=== PATIENT | female | born 1950 | race Caucasian/White ===

== ENCOUNTER 2017-01-21 17:40 | Emergency (ER) | payer OTHER ==
[~2017-01-21] VITALS: Ht 151.1 cm; Wt 49.7 kg
[2017-01-21 17:48] VITALS: TEMP 36.7; Ht 151.1 cm; Wt 49.7 kg
[2017-01-21] MEDS ORDERED: LABETALOL HCL IV 5 MG/ML 20ML IV STA (20:50)
[2017-01-21 21:03] LABS: BASO % 0.5 %; BASO ABS # 0.04 K/uL (0-0.2); COMPLETE YES; EOS % 1.4 %; HEMATOCRIT 44.9 % (37-47); IG% 0.1 %; LYMPH % 34.6 %; LYMPH ABS # 2.76 K/uL (1.2-3.4); MEAN CELL VOLUME 86.2 fL (80-100); MEAN CORPUSCULAR HEMOGLOBIN 29.6 pg (25-34); MEAN CORPUSCULAR HGB CONC 34.3 g/dl (32-36); MEAN PLATELET VOLUME 10.3 fL (7.4-10.4); MONO % 5.8 %; NEUT % 57.6 %; PLATELET COUNT 316 K/uL (130-400); RED BLOOD COUNT 5.21 M/uL (4.2-5.4); WHITE BLOOD COUNT 7.98 K/uL (4.8-10.8)
[2017-01-21 21:21] LABS: BUN/CREATININE RATIO 13.4 (10-20); CREATININE 0.73 mg/dl (0.60-1.20); MAGNESIUM 2.4 mg/dl (1.8-2.4)
--- NOTE | 2017-01-21 21:22 | EMERGENCY ROOM VISIT NOTE ---
History Report prepared by Altaf: Betty Villareal Under the Supervision of: Dr. Lizabeth Hillman M.D. First contact with patient: 20:48 Chief Complaint: HYPERTENSION Stated Complaint: HIGH BP 170/110 History of Present Illness The patient is a 66 year old female who presents to the Emergency Room with complaints of persistent hypertension that began prior to arrival. The patient states that she follows with doctors at [facility]. She states that she was just evaluated there earlier this week and was noted to have a blood pressure of 170/90 mmHg. The patient states that she was discharged with a Penicillin antibiotic and Nasonex. She states that today she developed a headache. The patient notes that she found her blood pressure was elevated after she went to [facility]. She additionally associates dizziness and neck pain with her symptoms. The patient denies any chest pain or shortness of breath. She states that she feels congested and feels feverish. Source of History: patient Onset: prior to arrival Position: other (global) Quality: other (hypertension) Timing: other (persistent) Associated Symptoms: + fevers, + headache, + neck pain, No chest pain, No SOB Note: Associated Symptoms: dizziness, congestion Review of Systems See HPI for pertinent positives & negatives. A total of 10 systems reviewed and were otherwise negative. Past Medical & Surgical seasonal allergies Family History No pertinent family history stated. Social History Smoking Status: Never Smoker Marital Status: Housing Status: lives with significant other Occupation Status: employed Current/Historical Medications Scheduled Amoxicillin (Amoxil), 1 TAB PO TID Lisinopril (Prinivil), 5 MG PO DAILY Mometasone Furoate (Nasal) (Mometasone Furoate), 2 SPRAYS STEPHANIE DAILY Montelukast Sodium (Singulair), 10 MG PO DAILY Naproxen (Aleve), 220 MG PO DAILY Saline ([place] Nasal [place]), 1 SPRAY STEPHANIE DAILY Allergies Uncoded Allergies: SULFA (Allergy, Unknown, 09/09/03) DECONGESTANTS (Adverse Reaction, Unknown, HEART PALPITATIONS, 01/21/17) Physical Exam Vital Signs Date Time Temp Pulse Resp B/P (MAP) Pulse Ox O2 Delivery O2 Flow Rate FiO2 01/22/17 00:03 76 18 138/87 99 01/21/17 22:40 70 18 98 01/21/17 22:31 139/75 01/21/17 22:16 124/75 01/21/17 22:10 77 22 97 01/21/17 22:01 139/79 01/21/17 21:46 141/79 01/21/17 21:40 77 17 97 01/21/17 21:31 141/71 01/21/17 21:26 167/102 01/21/17 21:19 86 01/21/17 21:10 94 16 100 01/21/17 21:07 166/97 01/21/17 20:19 189/115 01/21/17 19:30 197/100 01/21/17 19:30 198/95 01/21/17 17:48 36.7 83 17 187/106 100 Room Air Physical Exam Vital signs reviewed, noted to be hypertensive. General: Well-appearing female, in no significant distress. HEENT: No scleral icterus, PERRLA, neck supple. Atraumatic. Cardiovascular: Regular rate and rhythm, no extra sounds. Pulmonary: Clear to auscultation bilaterally, normal work of breathing. Abdomen: Soft, nontender, nondistended, positive bowel sounds. Musculoskeletal: Atraumatic, no peripheral edema. Neurologic: Patient awake alert and oriented x 3, full strength in all 4 extremities. Cranial nerves 2 through 12 grossly intact. Skin: Warm, dry, no rash Medical Decision & Procedures ER Provider Diagnostic Interpretation: X-ray results as stated below per interpretation by me and the radiologist: CHEST ONE VIEW PORTABLE CLINICAL HISTORY: Chest pain. Hypertension. COMPARISON STUDY: Chest radiograph May 06, 2006. FINDINGS: The lung volumes are normal. The lungs are clear. No pneumothorax or pleural effusion is identified. Cardiac size is normal. Mediastinal contours are normal. There is no evidence of pulmonary edema. IMPRESSION: No acute cardiopulmonary findings. Electronically signed by: Carlos Childs M.D. 01/21/2017 9:34 PM Dictated Date/Time: 01/21/2017 9:33 PM Laboratory Results 01/21/17 20:40 Red Blood Count 5.21, Mean Corpuscular Volume 86.2, Mean Corpuscular Hemoglobin 29.6, Mean Corpuscular Hemoglobin Concent 34.3, Mean Platelet Volume 10.3, Neutrophils (%) (Auto) 57.6, Lymphocytes (%) (Auto) 34.6, Monocytes (%) (Auto) 5.8, Eosinophils (%) (Auto) 1.4, Basophils (%) (Auto) 0.5, Neutrophils # (Auto) 4.60, Lymphocytes # (Auto) 2.76, Monocytes # (Auto) 0.46, Eosinophils # (Auto) 0.11, Basophils # (Auto) 0.04 01/21/17 20:40 Test 01/21/17 20:40 01/21/17 20:58 White Blood Count 7.98 K/uL (4.8-10.8) Red Blood Count 5.21 M/uL (4.2-5.4) Hemoglobin 15.4 g/dL (12.0-16.0) Hematocrit 44.9 % (37-47) Mean Corpuscular Volume 86.2 fL (80-100) Mean Corpuscular Hemoglobin 29.6 pg (25-34) Mean Corpuscular Hemoglobin Concent 34.3 g/dl (32-36) Platelet Count 316 K/uL (130-400) Mean Platelet Volume 10.3 fL (7.4-10.4) Neutrophils (%) (Auto) 57.6 % Lymphocytes (%) (Auto) 34.6 % Monocytes (%) (Auto) 5.8 % Eosinophils (%) (Auto) 1.4 % Basophils (%) (Auto) 0.5 % Neutrophils # (Auto) 4.60 K/uL (1.4-6.5) Lymphocytes # (Auto) 2.76 K/uL (1.2-3.4) Monocytes # (Auto) 0.46 K/uL (0.11-0.59) Eosinophils # (Auto) 0.11 K/uL (0-0.5) Basophils # (Auto) 0.04 K/uL (0-0.2) RDW Standard Deviation 41.1 fL (36.4-46.3) RDW Coefficient of Variation 13.0 % (11.5-14.5) Immature Granulocyte % (Auto) 0.1 % Immature Granulocyte # (Auto) 0.01 K/uL (0.00-0.02) Anion Gap 10.0 mmol/L (3-11) Est Creatinine Clear Calc Drug Dose 53.8 ml/min Estimated GFR () 100.2 Estimated GFR (Non- 86.4 BUN/Creatinine Ratio 13.4 (10-20) Calcium Level 9.1 mg/dl (8.5-10.1) Magnesium Level 2.4 mg/dl (1.8-2.4) Total Bilirubin 0.7 mg/dl (0.2-1) Direct Bilirubin 0.1 mg/dl (0-0.2) Aspartate Amino Transf (AST/SGOT) 15 U/L (15-37) Alanine Aminotransferase (ALT/SGPT) 25 U/L (12-78) Alkaline Phosphatase 93 U/L (45-117) Total Creatine Kinase 119 U/L (26-192) Creatine Kinase MB 1.9 ng/ml (0.5-3.6) Creatine Kinase MB Ratio 1.6 (0-3.0) Total Protein 7.7 gm/dl (6.4-8.2) Albumin 4.3 gm/dl (3.4-5.0) Bedside Troponin I < 0.030 ng/ml (0-0.045) Laboratory results per my review. Medications Administered Medications (Trade) Dose Ordered Sig/Cricket Route Start Time Stop Time Status Last Admin Dose Admin Labetalol HCl (Normodyne IV) 10 mg NOW STAT IV 01/21/17 20:50 01/21/17 20:52 DC 01/21/17 21:25 10 MG Sodium Chloride 1,000 ml @ 125 mls/hr Q8H STAT IV 01/21/17 21:39 01/22/17 00:20 DC 01/21/17 21:49 125 MLS/HR ECG Indication: other (hypertension, dizziness) Rate (beats per minute): 82 Rhythm: normal sinus Findings: no acute ischemic change, no ectopy ED Course 2107: Past medical records reviewed. The patient was evaluated in room A12B. A complete history and physical examination was performed. 2049: Ordered Labetalol HCl 10 mg IV. 2138: Ordered Sodium Chloride 1000 ml @ 125 mls/hr IV. 0: I reevaluated the patient and she is doing well. I discussed the exam findings with her and I discussed the treatment plan. She verbalized complete understanding and agreement. She is ready to go home. Medical Decision Differential diagnosis: Etiologies such as benign positional vertigo, hypertensive urgency, dehydration , hypovolemia, anemia, tumor, infection, hypoglycemia, electrolyte abnormalities , cardiac sources, intracerebral event, toxicologic, neurologic, as well as others were entertained. Medication Reconciliation: I attest that I have personally reviewed the patient' s current medication list. Blood Pressure Screening: Patient was found to have an elevated blood pressure and was referred to their primary doctor for recheck and further treatment. This patient was evaluated and appeared to be in no significant distress. IV access was obtained and laboratory work was drawn. The patient was placed on the apartment groundskeeper and found to be in a NSR, BP is noted to be elevated. Patient was medicated with labetalol 10 mg IV with significant improvement. She did receive gentle IV hydration. Patient is found to be mildly hyponatremic. She was informed of the findings. The patient was given a prescription for lisinopril 5 mg daily and actually advised to increase the sodium in her diet. Patient will follow-up with her primary care physician in one week for reevaluation and medication management. She will return to the ER for worsening of symptoms or any medical concerns. Impression Primary Impression: Hypertension Additional Impression: Hyponatremia Scribe Attestation The scribe's documentation has been prepared under my direction and personally reviewed by me in its entirety. I confirm that the note above accurately reflects all work, treatment, procedures, and medical decision making performed by me. Departure Information Dispostion Home / Self-Care Prescriptions Lisinopril (Prinivil) 5 Mg Tab 5 MG PO DAILY for 30 Days, #30 TAB Prov: Lizabeth Hillman M.D. 01/21/17 Forms HOME CARE DOCUMENTATION FORM, IMPORTANT VISIT INFORMATION, WORK / SCHOOL INSTRUCTIONS Patient Instructions My [facility] Additional Instructions Diagnosis: Hypertension, low sodium Please monitor the sodium in your diet. Lisinopril 5 mg daily. Follow-up with your physician in one week for reevaluation of your blood pressure, medications and repeat laboratory work. Return to the emergency department for worsening of symptoms or any medical concerns. Problem Qualifiers
[2017-01-21 21:25] LABS: CKMB/CK RATIO 1.6 (0-3.0)
[2017-01-21] MEDS ORDERED: MONT1TAB3 PO (21:28)
[2017-01-21] MEDS ORDERED: AMOX250C PO (21:28)
[2017-01-21] MEDS ORDERED: MOME6000 NAE (21:28)
[2017-01-21] MEDS ORDERED: NAPR1TAB9 PO (21:30)
[2017-01-21] MEDS ORDERED: SALI0.6510 NAE (21:33)
--- NOTE | 2017-01-21 21:35 | DIAGNOSTIC IMAGING REPORT ---
CHEST ONE VIEW PORTABLE CLINICAL HISTORY: Chest pain. Hypertension. COMPARISON STUDY: Chest radiograph May 06, 2006. FINDINGS: The lung volumes are normal. The lungs are clear. No pneumothorax or pleural effusion is identified. Cardiac size is normal. Mediastinal contours are normal. There is no evidence of pulmonary edema. IMPRESSION: No acute cardiopulmonary findings. Electronically signed by: Carlos Childs M.D. 01/21/2017 9:34 PM Dictated Date/Time: 01/21/2017 9:33 PM
[2017-01-21] MEDS ORDERED: SODIUM CHLORIDE 0.9% 1000ML 1,000 ML IV STA (21:39)
[2017-01-21 22:00] LABS: CALCIUM 9.1 mg/dl (8.5-10.1)
[2017-01-21] MEDS ORDERED: LISI-729 PO (23:28)
[2017-01-22 00:03] VITALS: BP 138/87; PULSE 76; O2SAT 99
== END 2017-01-22 00:03 | disposition home or self-care (01) ==
LOC: EDBD → C.EDB 17:42 → C.EDA 01-22 00:03
DX: I10 Essential (primary) hypertension (principal); E87.1 Hypo-osmolality and hyponatremia

== ENCOUNTER 2017-01-25 16:13 | Emergency (ER) | payer OTHER ==
[~2017-01-25] VITALS: Ht 151.1 cm; Wt 48.6 kg
[~2017-01-25 16:13] MED LIST: AMOX250C PO; LISI-729 PO; MOME6000 NAE; MONT1TAB3 PO; NAPR1TAB9 PO; SALI0.6510 NAE
[2017-01-25 16:28] VITALS: TEMP 36.8; Ht 151.1 cm; Wt 48.6 kg
--- NOTE | 2017-01-25 17:20 | EMERGENCY ROOM VISIT NOTE ---
History Report prepared by Altaf: Donta Pugh Under the Supervision of: Dr. Kemar Machuca M.D. First contact with patient: 16:51 Chief Complaint: HYPERTENSION Stated Complaint: HIGH BP,CHEST CONGESTION History of Present Illness The patient is a 66 year old female who presents to the Emergency Room with complaints of intermittent high blood pressure starting 5 days ago. She also started having chest congestion, and shortness of breath about a month and a half ago. 5 days ago, she took a decongestant without relief. She also noticed an elevated blood pressure 5 days ago. She was evaluated in the Emergency Room 4 days ago where she had a negative chest x-ray, negative blood work, and negative EKG. She was prescribed Lisinopril 5 mg once a day and she was discharged home. She took one dose of Lisinopril 3 days ago with relief. Her blood pressure remained within normal limits for the next 2 days and she did not take any more doses of Lisinopril. This afternoon, her blood pressure increased to 150s systolic and she took the prescribed blood pressure medication. The patient states that she becomes anxious when she has difficulty breathing. She has been taking Amoxicillin for the congestion without relief. She denies fevers, chills, urinary symptoms, diarrhea, constipation, or any other complaints. Source of History: patient Onset: 5 days ago Position: other (global) Quality: other (high blood pressure) Timing: intermittent Modifying Factors (Relieving): other (Lisinopril with relief) Associated Symptoms: + SOB, No fevers, No chills, No diarrhea, No urinary symptoms Review of Systems All systems have been listed, reviewed, and are negative other than those previously mentioned. Please see Additional Medical History Sheet. Past Medical & Surgical Medical Problems: (1) Cough (2) Dysphagia (3) Esophageal reflux (4) Vaginitis Family History Heart disease Hypertension Seizures Social History Smoking Status: Never Smoker Marital Status: Housing Status: lives with significant other Occupation Status: employed Current/Historical Medications Scheduled Amoxicillin (Amoxil), 1 TAB PO TID Lisinopril (Prinivil), 5 MG PO DAILY Mometasone Furoate (Nasal) (Mometasone Furoate), 2 SPRAYS STEPHANIE DAILY Montelukast Sodium (Singulair), 10 MG PO DAILY Naproxen (Aleve), 220 MG PO DAILY Saline ([place] Nasal [place]), 1 SPRAY STEPHANIE DAILY Scheduled PRN Albuterol Hfa (Ventolin Hfa), 2 PUFFS INH Q6H PRN for chest congestion Allergies Uncoded Allergies: SULFA (Allergy, Unknown, 09/09/03) DECONGESTANTS (Adverse Reaction, Unknown, HEART PALPITATIONS, 01/21/17) Physical Exam Vital Signs Date Time Temp Pulse Resp B/P (MAP) Pulse Ox O2 Delivery O2 Flow Rate FiO2 01/25/17 19:07 75 20 157/95 99 Room Air 01/25/17 18:08 78 18 160/95 98 Room Air 01/25/17 17:39 77 01/25/17 17:20 76 18 169/96 99 Room Air 01/25/17 16:28 36.8 81 20 186/92 100 Room Air Physical Exam GENERAL: Patient awake, alert, anxious. Patient follows commands. Patient does not appear toxic. Patient is adequately hydrated and well-nourished. SKIN: No erythema, pallor, cyanosis or rash HEENT: Normal head, pupils equal, reactive to light and accommodation. Ears normal. Old scars on both TMs. Oral cavity and posterior pharynx appear normal. Neck: Without adenopathy, no neck vein distention. LUNGS: Clear to auscultation. No wheezes, no rales, no rhonchi. HEART: No murmurs. No gallops. No rubs ABDOMEN: No masses, no rebound, no hepatomegaly or splenomegaly. EXTREMITIES: No signs of trauma. No pedal or pretibial edema. No calf or thigh tenderness. NEUROLOGIC: Cranial nerves II-XII within normal limits. No gross motor sensory function deficits. PSYCHIATRIC: Patient is awake, alert, and anxious. Medical Decision & Procedures ER Provider Diagnostic Interpretation: X ray results are stated below per my interpretation and the radiologist's interpretation. CHEST 2 VIEWS ROUTINE CLINICAL HISTORY: chest congestion SHORTNESS OF BREATH COMPARISON STUDY: 01/21/2017 FINDINGS: The cardiac and mediastinal contours are normal. There is no evidence of focal pulmonary consolidation. There is no evidence of failure. No pleural effusions are visualized.[ IMPRESSION: No active disease in the chest. Electronically signed by: Jerod Yeboah M.D. 01/25/2017 6:05 PM Dictated Date/Time: 01/25/2017 6:04 PM Laboratory Results 01/25/17 17:24 01/25/17 17:24 Test 01/25/17 17:24 Red Blood Count 4.90 M/uL (4.2-5.4) Mean Corpuscular Volume 86.1 fL (80-100) Mean Corpuscular Hemoglobin 29.6 pg (25-34) Mean Corpuscular Hemoglobin Concent 34.4 g/dl (32-36) RDW Standard Deviation 41.8 fL (36.4-46.3) RDW Coefficient of Variation 13.1 % (11.5-14.5) Mean Platelet Volume 10.3 fL (7.4-10.4) Anion Gap 9.0 mmol/L (3-11) Est Creatinine Clear Calc Drug Dose 61.3 ml/min Estimated GFR () 108.5 Estimated GFR (Non- 93.6 BUN/Creatinine Ratio 15.2 (10-20) Calcium Level 8.6 mg/dl (8.5-10.1) Troponin I < 0.015 ng/ml (0-0.045) Thyroid Stimulating Hormone (TSH) 1.600 uIu/ml (0.300-4.500) Laboratory results as stated above per my review. ECG Indication: SOB/dyspnea Rate (beats per minute): 77 Rhythm: normal sinus Findings: no acute ischemic change, no ectopy ED Course 1650: Past medical records reviewed. The patient was evaluated in room B03B. A complete history and physical examination was performed. 1954: Upon reevaluation, the patient appeared to have improvement of her symptoms. I discussed today's findings with her. She verbalized agreement of the treatment plan. She was discharged home. Medical Decision Differential diagnosis includes but is not limited to essential hypertension, anxiety, pneumonia, upper respiratory infection. Medication Reconciliation: I attest that I have personally reviewed the patient' s current medication list. Blood Pressure Screening: Patient was found to have an elevated blood pressure and was referred to their primary doctor for recheck and further treatment. The patient has been on lisinopril but taking it irregularly. Blood pressure was elevated today which may be related to anxiety. She is given no medication here but her blood pressure did come down. She was encouraged to continue taking lisinopril. Chest x-ray does not reveal an infiltrate. She was given a prescription for Ventolin. She is to follow-up with her family physician within the next 2 weeks. Impression Primary Impression: Labile hypertension Additional Impression: Upper respiratory infection Scribe Attestation The scribe's documentation has been prepared under my direction and personally reviewed by me in its entirety. I confirm that the note above accurately reflects all work, treatment, procedures, and medical decision making performed by me. Departure Information Dispostion Home / Self-Care Prescriptions Albuterol Hfa (VENTOLIN HFA) 200 Puffs/41706 [place]g Aers 2 PUFFS INH Q6H Y for chest congestion, #1 INHALER Dispense with chamber Prov: Kemar Machuca M.D. 01/25/17 Referrals No Doctor, Assigned (PCP) Patient Instructions My [facility] Additional Instructions Continue taking your blood pressure medication as prescribed. 2 puffs of Ventolin every 4-6 hours as needed for chest congestion. Follow-up with a family physician within the next 2 weeks. Problem Qualifiers
[2017-01-25 17:40] LABS: HEMATOCRIT 42.2 % (37-47); MEAN CELL VOLUME 86.1 fL (80-100); MEAN CORPUSCULAR HEMOGLOBIN 29.6 pg (25-34); MEAN CORPUSCULAR HGB CONC 34.4 g/dl (32-36); MEAN PLATELET VOLUME 10.3 fL (7.4-10.4); PLATELET COUNT 286 K/uL (130-400); WHITE BLOOD COUNT 6.63 K/uL (4.8-10.8)
[2017-01-25 17:57] LABS: BLOOD UREA NITROGEN 10 mg/dl (7-18); BUN/CREATININE RATIO 15.2 (10-20); CALCIUM 8.6 mg/dl (8.5-10.1); CARBON DIOXIDE 24 mmol/L (21-32); CHLORIDE 101 mmol/L (98-107); CREATININE 0.64 mg/dl (0.60-1.20); GLUCOSE 85 mg/dl (70-99); POTASSIUM 3.8 mmol/L (3.5-5.1); SODIUM 134 mmol/L (136-145)
--- NOTE | 2017-01-25 18:06 | DIAGNOSTIC IMAGING REPORT ---
CHEST 2 VIEWS ROUTINE CLINICAL HISTORY: chest congestion SHORTNESS OF BREATH COMPARISON STUDY: 01/21/2017 FINDINGS: The cardiac and mediastinal contours are normal. There is no evidence of focal pulmonary consolidation. There is no evidence of failure. No pleural effusions are visualized.[ IMPRESSION: No active disease in the chest. Electronically signed by: Jerod Yeboah M.D. 01/25/2017 6:05 PM Dictated Date/Time: 01/25/2017 6:04 PM
[2017-01-25 19:07] VITALS: BP 157/95; PULSE 75; O2SAT 99
[2017-01-25] MEDS ORDERED: VNTHFA/IN INH (19:09)
== END 2017-01-25 19:40 | disposition home or self-care (01) ==
LOC: EDBD → C.EDB 16:13
DX: R03.0 Elevated blood-pressure reading, without diagnosis of hypertension (principal); J06.9 Acute upper respiratory infection, unspecified; K21.9 Gastro-esophageal reflux disease without esophagitis; Z82.49 Family history of ischemic heart disease and other diseases of the circulatory system; Z82.0 Family history of epilepsy and other diseases of the nervous system; Z79.899 Other long term (current) drug therapy

== ENCOUNTER 2020-02-18 15:18 | Inpatient (IN) ==
--- NOTE | 2020-02-18 16:17 | XRay Report ---
XR chest 1V portable CLINICAL HISTORY: palpitations COMPARISON STUDY: 02/14/2020 FINDINGS: The cardiac and mediastinal contours are normal. There is no evidence of focal pulmonary co nsolidation. There is no evidence of failure. No pleural effusions are visualized.[ IMPRESSION: No active disease in the chest. ACT 112: Negative or not required by law. Electronically signed by: Jerod Yeboah M.D. 02/18/2020 4:15 PM
[2020-02-18 16:22] LABS: Basophils # (auto) 0.04 K/uL (0-0.2); Basophils % (auto) 0.5 %; Eosinophils # (auto) 0.07 K/uL (0-0.5); Eosinophils % (auto) 0.9 %; Hematocrit (blood only) 43.3 % (37-47); Hemoglobin 14.8 g/dL (12.0-16.0); Immature Granulocytes # (auto) 0.02 K/uL (0.00-0.02); Immature Granulocytes % (auto) 0.3 %; Lymphocytes # (auto) 1.78 K/uL (1.2-3.4); Lymphocytes % (auto) 22.5 %; Mean Corpuscular Hemoglobin 30.7 pg (25-34); Mean Corpuscular Hgb Conc 34.2 g/dL (32-36); Mean Corpuscular Volume 89.8 fL (80-100); Mean Platelet Volume 11.3 fL (7.4-10.4); Monocytes # (auto) 0.61 K/uL (0.11-0.59); Monocytes % (auto) 7.7 %; Neutrophils # (auto) 5.39 K/uL (1.4-6.5); Neutrophils % (auto) 68.1 %; Platelet Count 295 K/uL (130-400); RDW Coefficient of Variation 13.3 % (11.5-14.5); Red Blood Count 4.82 M/uL (4.2-5.4); White Blood Count 7.91 K/uL (4.8-10.8)
--- NOTE | 2020-02-18 16:36 | Emergency Department Note ---
History of Present Illness General Chief complaint: Cardiac Assessment Stated complaint: DIZZINESS - HEAD PAIN - CRANKY - HEART BEATING FAS Time Seen by Provider: 02/18/20 15:38 Source: patient Mode of arrival: ambulatory Limitations: no limitations History of Present Illness Provider complaint: palpitations, sob Onset (ago): hour(s) Radiation: non-radiation Severity: moderate Current Pain Intensity: 0 Relieved By: + none Exacerbated By: + none Associated symptoms: + denies other symptoms Treatments prior to arrival: none Is a 69-year-old female who presents the emergency room complaining of increasing palpitations with shortness of breath and dizziness. Patient states she was seen and evaluated here on Wednesday due to dizziness and cramps. Patient states at that time it was thought that she was perhaps dehydrated and had been out in the heat/sun for too long. Patient states she had labs drawn and sent, a head CT performed, chest x-ray performed, and was rehydrated. Patient states she went home and has felt well until today when she had increased dizziness, a sense of racing and pounding in her chest, and felt slightly short of breath. Patient states she alerted her who brought her to the emergency room. Patient denies any sun or heat exposure. States she feels she has been staying well-hydrated. Pt states dizziness comes and goes as do episodes of racing heart. Pt denies any dysrhythmia history. States she has never had any cardiology evaluation. No recent headaches or change in vision. Pt states she hasn't had any recurrent cramping. No known sick contacts or exposure to any COVID positive individuals. Pt seen during a time of high acuity and national emergency pandemic while wearing PPE. Home Medications Home Medications Medication Instructions Recorded Confirmed Type azelastine-fluticasone [Dymista] 1 spray INTRANASAL BID PRN 06/03/19 02/18/20 History Lacto.acidophilus-Bif.animalis 2 cap PO QAM 02/14/20 02/18/20 History [Probiotic] Triphala 1 cap PO QAM 02/14/20 02/18/20 History fluticasone propionate [Xhance] 1 spray INTRANASAL BID 02/14/20 02/18/20 History flgut-8w-qem-epa-fish oil [[place]-3 1 cap PO QAM 02/14/20 02/18/20 History Fish Oil] aspirin 81 mg PO QAM 02/18/20 02/18/20 History ibuprofen [Advil] 200 mg PO Q6H PRN 02/18/20 02/18/20 History Allergies Allergy/AdvReac Type Severity Reaction Status Date / Time Sulfa (Sulfonamide Allergy Intermediate Tachycardia Verified 02/19/20 10:09 Antibiotics) pseudoephedrine AdvReac Intermediate Palpitations Verified 02/19/20 10:09 - DECONGESTANTS Past Med/Surg History Social History Preferred Language: Bulgarian Communication Ability: Effective 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 and A total of 10 systems reviewed and were otherwise negative Physical Exam Vital Signs Vital Signs - 24 hr 02/18/20 17:19 02/18/20 19:38 Pulse Rate [Apical] 78 85 Pulse Rhythm [Apical] Regular Respiratory Rate 18 18 Respiratory Depth Normal Blood Pressure [Left Arm] 150/98 H 149/90 H Blood Pressure Mean [Left Arm] 115 109 Pulse Oximetry 97 Oxygen Delivery Method Room Air GENERAL: alert, well appearing, well nourished, no distress, non-toxic, anxious appearing EYE EXAM: normal conjunctiva, PERRL and EOM's grossly intact, no nystagmus OROPHARYNX: no exudate, no erythema, lips, buccal mucosa, and tongue normal and mucous membranes are moist NECK: supple, no nuchal rigidity, no adenopathy, non-tender LUNGS: Clear to auscultation. Normal chest wall mechanics, no w/r/r HEART: no murmurs, S1 normal and S2 normal ABDOMEN: abdomen soft, non-tender, normo-active bowel sounds, no masses, no rebound or guarding. BACK: Back is symmetrical on inspection and there is no deformity, no midline tenderness, no CVA tenderness. SKIN: no rashes and no bruising UPPER EXTREMITIES: upper extremities are grossly normal. FROM, nml pulses b/l. LOWER EXTREMITIES: No pitting edema. FROM, nml pulses b/l. NEURO EXAM: Normal sensorium, cranial nerves II-XII grossly intact, normal speech, no gross weakness of arms, no gross weakness of legs. Gross sensation intact. No facial droop. No ataxia. Course Course 1800: Pt updated. Now states she has a headache. Non focal neuro exam at bedside. No recurrent palpitations. No ectopy/dysrhythmia noted on tele. 2010: Pt updated on results. States still having episodic dizziness and rapid heart rate. 2035: Case discussed with Dr. Wiseman. Administered Medications Aspirin (Ecotrin Ectab) [facility] [place] Stop: 03/20/20 08:59 Last Admin: 02/19/20 08:12 Dose: 81 mg Documented by: [id number] Fluticasone Propionate (Flonase) 1 sprays NA BID [facility] Stop: 03/20/20 08:59 Last Admin: 02/19/20 08:12 Dose: 1 sprays Documented by: [id number] Sodium Chloride (Nss 1000ml) 1,000 mls @ 150 mls/hr IV .Q6H40M [facility] Stop: 03/20/20 10:14 Last Admin: 02/19/20 11:53 Dose: 150 mls/hr Documented by: [id number] Losartan Potassium (Cozaar) 25 mg PO QAM [facility] Stop: 03/20/20 08:59 Last Admin: 02/19/20 09:39 Dose: 25 mg Documented by: [id number] Pt's Own Med:~~~ DymistaNon- Formulary Patient's Own Med 1 ea STEPHANIE BID PRN PRN Reason: Allergy Symptoms Stop: 03/20/20 10:20 Last Admin: 02/19/20 14:51 Dose: 1 sprays Documented by: [id number] Discontinued Medications Sodium Chloride (Nss) 500 mls @ 999 mls/hr IV .Q31M ONE Stop: 02/18/20 20:17 Last Infusion: 02/18/20 20:33 Dose: 0 mls/hr Documented by: [id number] Admin: 02/18/20 19:58 Dose: 999 mls/hr Documented by: [id number] Ioversol (Optiray 320 125ml) 119 ml IV ONCE PRN PRN Reason: Interaction Checking Stop: 02/22/20 18:49 Last Admin: 02/18/20 18:50 Dose: 119 ml Documented by: [id number] Miscellaneous (Order Awaiting Action) 1 ea N/A QS MARY GRACE Stop: 03/20/20 00:00 Last Admin: 02/19/20 08:13 Dose: Not Given Documented by: [id number] Admin: 02/19/20 00:24 Dose: Not Given Documented by: [id number] Medical Decision Making Differential Diagnosis Differential diagnosis includes etiologies such as premature contractions, el ectrolyte abnormality, cardiac dysrhythmia, thyroid dysfunction, pulmonary embolism, infection, gastrointestinal, as well as others were entertained. Medical Records Attestation: I reviewed the patient's medical records. Home Medications Current Medication List: was personally reviewed by me Laboratory Data Attestation: I reviewed the patient's lab results. Result diagrams: 02/19/20 05:47 02/19/20 05:47 Lab Results 02/18/20 02/18/20 02/18/20 Range/Units 16:09 16:09 20:00 WBC 7.91 (4.8-10.8) K/uL RBC 4.82 (4.2-5.4) M/uL Hgb 14.8 (12.0-16.0) g/dL Hct 43.3 (37-47) % MCV 89.8 (80-100) fL MCH 30.7 (25-34) pg MCHC 34.2 (32-36) g/dL RDW Std Deviation 44.0 (36.4-46.3) fL RDW Coeff of Neal 13.3 (11.5-14.5) % Plt Count 295 (130-400) K/uL MPV 11.3 H (7.4-10.4) fL Immature Gran % (Auto) 0.3 % Neut % (Auto) 68.1 % Lymph % (Auto) 22.5 % Cass % (Auto) 7.7 % Eos % (Auto) 0.9 % Baso % (Auto) 0.5 % Neut # (Auto) 5.39 (1.4-6.5) K/uL Lymph # (Auto) 1.78 (1.2-3.4) K/uL Cass # (Auto) 0.61 H (0.11-0.59) K/uL Eos # (Auto) 0.07 (0-0.5) K/uL Baso # (Auto) 0.04 (0-0.2) K/uL Immature Gran # (Auto) 0.02 (0.00-0.02) K/uL Sodium 131 L (136-145) mmol/L Potassium 4.0 (3.5-5.1) mmol/L Chloride 98 (98-107) mmol/L Carbon Dioxide 24 (21-32) mmol/L Anion Gap 10.0 (3-11) BUN 17 (7-18) mg/dl Creatinine 0.94 (0.6-1.2) mg/dl Est Cr Clr Drug Dosing Not Reportable Est GFR ( Amer) 72.2 Est GFR (Non-Af Amer) 62.3 BUN/Creatinine Ratio 18.5 (10-20) Glucose 84 (70-99) mg/dl Calcium 8.7 (8.5-10.1) mg/dl Magnesium 2.1 (1.8-2.4) mg/dl Total Bilirubin 0.5 (0.2-1) mg/dl AST 25 (15-37) U/L ALT 26 (12-78) U/L Alkaline Phosphatase 108 (45-117) U/L Troponin I < 0.015 < 0.015 (0-0.045) ng/ml NT-Pro-B Natriuret Pep 77 (0-900) pg/ml Total Protein 7.0 (6.4-8.2) gm/dl Albumin 3.9 (3.4-5.0) gm/dl Globulin 3.1 (2.5-4.0) gm/dl Albumin/Globulin Ratio 1.2 (0.9-2) Lipase 194 (73-393) U/L Imaging Data Radiologist's Impression: XR chest 1V portable CLINICAL HISTORY: palpitations COMPARISON STUDY: 02/14/2020 FINDINGS: The cardiac and mediastinal contours are normal. There is no evidence of focal pulmonary consolidation. There is no evidence of failure. No pleural effusions are visualized.[ IMPRESSION: No active disease in the chest. ACT 112: Negative or not required by law. Electronically signed by: Jerod Yeboah M.D. 02/18/2020 4:15 PM ECG Data Attestation: I personally reviewed and interpreted this ECG as follows: Indication: + palpitations Rate (beats per minute): 75 Rhythm: + normal sinus ECG Intervals/blocks: + Normal QRS and + Normal QT ECG [place]: + Normal ECG ST segments: + Normal ST segments Blood Pressure Blood Pressure Findings: Elevated blood pressure Blood Pressure Disposition: further management by hospitalist ADDI Narrative Pt here anxious appearing for the 2nd time this week complaining of worsening symptoms. Pt c/o intermittent dizziness and palpitations. Evaluation earlier this week was unremarkable and pt offered additional inpatient evaluation and declined, requesting to be discharged. Pt here stating symptoms worse than before despite staying hydrated and avoiding sun/heat exposure. Labs repeated and cxr unremarkable. Mild hyponatremia, but I do not feel contributing to intermittent symptoms. No acute EKG changes noted. On a recheck pt also began c/o of accompanying headache so we discussed additional neuroimaging. This was unremarkable also. On subsequent recheck pt still c/o dizziness and palpitations so we discussed disposition. Pt in agreement and I discussed the case with the hospitalist. It was noted pt had persistent hypertension and I discussed this with her. Pt states she used to take lisinopril 5mg but after becoming more active and losing weight her BP became low so the med was discontinued. I discussed with her possible hypertensive urgency. Will defer initiation of meds to hospitalist at this time. An order was placed for continuous cardiac monitoring. The monitor shows a rate of 82 with normal sinus rhythm. Impression & Plan Palpitation, Hypertension, Dizziness Discharge Plan Visit Data *Final* Discharge Date/Time: 02/18/20 21:59 Chief Complaint: Cardiac Assessment Stated Complaint: DIZZINESS - HEAD PAIN - CRANKY - HEART BEATING FAS ED Provider: Nona [place] Discharge Problem: Palpitation, Hypertension, Dizziness Patient Disposition: Admitted As Inpatient Discharge Instructions Interventions: ED Discharge Assessment Last Done: 02/18/20 21:59 Discharge Problem: Hypertension Qualifiers: Hypertension type: unspecified Qualified Code(s): I10 - Essential (primary) hypertension
[2020-02-18 16:37] LABS: Alanine Aminotransferase 26 U/L (12-78); Albumin Level 3.9 gm/dl (3.4-5.0); Aspartate Aminotransferase 25 U/L (15-37); BUN Creatinine Ratio 18.5 (10-20); Blood Urea Nitrogen 17 mg/dl (7-18); Calcium 8.7 mg/dl (8.5-10.1); Carbon Dioxide 24 mmol/L (21-32); Chloride 98 mmol/L (98-107); Est GFR (African American) 72.2; Est GFR (Non-African American) 62.3; Glucose 84 mg/dl (70-99); Lipase 194 U/L (73-393); Magnesium 2.1 mg/dl (1.8-2.4); Sodium 131 mmol/L (136-145)
[2020-02-18 16:42] LABS: Albumin Globulin Ratio 1.2 (0.9-2); Alkaline Phosphatase 108 U/L (45-117); Bilirubin,Total 0.5 mg/dl (0.2-1); Globulin 3.1 gm/dl (2.5-4.0); NT Pro B Type Natriuretic Pept 77 pg/ml (0-900); Troponin I < 0.015 ng/ml (0-0.045)
[2020-02-18] MEDS ORDERED: OPTIRAY 320 125ml IV PRN (18:50)
--- NOTE | 2020-02-18 19:10 | CT Scan Report ---
CT angio head wo/w CT DOSE: 980.35 mGy.cm CLINICAL HISTORY: dizzy, headache TECHNIQUE: Unenhanced images were obtained through the brain. CT angiography was then performed a [facility] helical fashion during intravenous administration of 119 cc of Optiray 320. MIP images were acqu ired. A dose lowering technique was utilized adhering to the principles of ALARA. COMPARISON STUDY: Noncontrast head CT dated 02/14/2020 FINDINGS: Noncontrast images reveal no intra or extra-axial mass lesions. There is no CT evidence of acute sanjay ical infarction. There is no evidence of acute hemorrhage. There is no evidence of midline shift. No calvarial fractures are visualized. There is prominent frontal extra-axial space likely secondary to volume loss. There is no evidence of hydrocephalus. There are mild white matter hypodensities likely on a small vessel basis. There is no evidence of acute sinusitis. Postcontrast images reveal no pathologically enhancing masses. There are no lesion suspicious for ane urysm. There are no major intracranial branch occlusions. There is no evidence for dural venous sinus thrombosis. There is a change in caliber of the distal right vertebral artery, with mild distal righ t vertebral artery narrowing.. It is unclear whether this is developmental or acquired. IMPRESSION: 1. No acute intracranial findings 2. No evidence of aneurysm 3. Change in caliber of the distal right vertebral artery. It is unclear whether this is acquired or developmental. ACT 112: Negative or not required by law. Electronically signed by: Jerod Yeboah M.D. 02/18/2020 7:09 PM
--- NOTE | 2020-02-18 19:14 | CT Scan Report ---
CT angio neck with con CLINICAL HISTORY: dizzy, headache COMPARISON STUDY: No previous studies for comparison. TECHNIQUE: CT angiography was performed from the aortic arch to the skull base. MIP imaging was perfo rmed. The patient was scanned in a dynamic helical fashion during intravenous administration of 119 c c of Optiray 320. A dose lowering technique was utilized adhering to the principles of ALARA. CT DOSE: Technique: CT angiogram of the carotid and vertebral arteries was obtained using intravenous contrast and 3-D reconstruction. NASCET criteria was utilized. Findings: There is calcified plaque involving the right carotid bulb. There is no evidence of hemodynamically s ignificant stenosis. There is no evidence of carotid artery dissection or occlusion. The left carotid revealed no evidence of hemodynamic significant stenosis. There is no evidence of an eurysm. There is no evidence of dissection. There is tapering of the intracranial distal right vertebral artery. It is unclear whether this is de velopmental or acquired. The vertebral arteries appear otherwise unremarkable. IMPRESSION: 1. No evidence of hemodynamically significant carotid stenosis 2. No evidence of left vertebral artery stenosis 3. Mild to moderate tapering of the intracranial distal right vertebral artery. It is unclear whether this is developmental or acquired. ACT 112: Negative or not required by law. Electronically signed by: Jerod Yeboah M.D. 02/18/2020 7:13 PM
[2020-02-18] MEDS ORDERED: SODIUM CHLORIDE 0.9% 500 ML IV ONE (19:47)
[2020-02-18] MEDS ORDERED: ACETAMINOPHEN 325 MG TAB PO PRN (22:31)
[2020-02-18] MEDS ORDERED: NITROGLYCERIN SL 0.4 MG/TAB TAB SL PRN (22:31)
[2020-02-18] MEDS ORDERED: ONDANSETRON INJ 2 MG/ML 2 ML VIAL IV PRN (22:31)
--- NOTE | 2020-02-18 23:33 | History and Physical Report ---
DATE OF ADMISSION: 02/18/2020 CHIEF COMPLAINT: Dizziness and palpitations. HISTORY OF PRESENT ILLNESS: A 69-year-old female with no significant past medical history, comes with dizziness and palpitations. The patient was here in the ER on 02/14/2020, at that time she presented with cramping sensation in the left leg and the left upper extremity and there is a plan to admit the patient to rule out acute coronary syndrome. At that time, she has numbness in left upper extremity, but her symptoms improved and was thought that maybe she was out in the sun and dehydrated and she wanted to go home and follow with her PCP. The patient says she went home, she was doing fine until today when she was ambulating, felt dizzy and palpitations, not feeling good and so she came back to the ER. Currently, resting comfortably and hemodynamically stable. Her workup is negative so far with EKG and troponins and labs were all fine. ER physician did a CTA of the head and neck, which was also unremarkable, only thing was her blood pressure running somewhat high. Denies any chest pain, no shortness of breath, no cough, no fever, no chills, no loss of sense of smell or taste. Currently no blurred vision, no earache, no headache, no runny nose, no sore throat, no dysphagia. Appetite is okay. Sleeps okay. No nausea, no abdominal pain. Normal bowel and bladder movements. No swelling in the legs, no rash. ALLERGIES: SULFA ANTIBIOTICS, DECONGESTANTS. PAST MEDICAL HISTORY: As mentioned above. PAST SURGICAL HISTORY: On file. MEDICATIONS: The patient is on aspirin 81 mg p.o. daily, Flonase intranasal b.i.d., Dymista 1 spray intranasal b.i.d. p.r.n., ibuprofen 200 mg p.o. q. 6 hours p.r.n., lactobacillus 2 capsules p.o. a.m., fish oil 1 capsule a.m., Triphala 1 capsule a.m. FAMILY HISTORY: Significant for mother had hypertension and heart disease in her 50s. Brother has heart disease in his 50s. SOCIAL HISTORY: No smoking. Alcohol occasional. Lives with her . REVIEW OF SYMPTOMS: As per HPI. Rest of review of symptoms negative. PHYSICAL EXAMINATION: GENERAL: The patient is of moderate built, not in acute distress. VITAL SIGNS: Temperature 36.8, pulse 85, respiratory rate 18, blood pressure when she came in was 178/90, currently 149/90, oxygen 97% on room air. HEENT: No pallor, no icterus. Pupils equal round. NECK: No JVD, no neck masses. CARDIOVASCULAR: S1, S2 heard, regular rate and rhythm, no murmur, no gallop. RESPIRATORY SYSTEM: Normal AP diameter. No accessory muscle use. No wheezing, no crackles. ABDOMEN: Soft, bowel sounds present, nontender. No distention. CENTRAL NERVOUS SYSTEM: Alert and oriented. Speech clear. Obeys commands. Moves extremities. EXTREMITIES: No edema, no erythema. LABORATORY DATA: WBC 7.9, hemoglobin 14.8, hematocrit 43.3, platelets 295. Sodium 131, potassium 4, chloride 98, bicarbonate 24, BUN 17, creatinine 0.9, serum glucose 84, calcium 8.7, magnesium 2.1, total bilirubin 0.5, AST 25, ALT 26, alkaline phosphatase 108. Troponin I less than 0.015. BNP 77, lipase 194. IMAGING: Chest x-ray, no active disease in the chest. CTA of the head, no acute intracranial findings, no evidence of aneurysm. Next CTA, no evidence of hemodynamically significant carotid stenosis. No evidence of left vertebral artery stenosis, mild to moderate tapering of the intracranial distal right vertebral artery, it is unclear whether this is developmental or acquired. EKG: Normal sinus rhythm with rate of 80, no significant change was found. ASSESSMENT AND PLAN: This is a 69-year-old female who presents with dizziness and palpitations. 1. Dizziness and palpitations: She was here in February 13 with some cramps in the left extremities. Currently, workup is negative so far except for somewhat elevated blood pressure. Family history significant for brother and mother has heart disease, we will rule out acute coronary syndrome with this time with serial enzymes and echocardiogram. Will keep her n.p.o. after midnight and will consult cardiology for further recommendations. Imaging studies are unremarkable so far. Monitor in the tele floor. 2. High blood pressure, hypertension: Situational versus essential, will follow the echo for any LVH. We will follow the blood pressure while she is in the hospital, possibly contributing her symptoms. 3. Deep venous thrombosis prophylaxis: Sequential compression devices. DISPOSITION: Observe in the med/tele. Expect to discharge home and follow with family doctor. Level 1 full code. MTDD
[2020-02-19 05:54] LABS: Basophils # (auto) 0.04 K/uL (0-0.2); Basophils % (auto) 0.6 %; Eosinophils # (auto) 0.13 K/uL (0-0.5); Hematocrit (blood only) 42.3 % (37-47); Immature Granulocytes # (auto) 0.01 K/uL (0.00-0.02); Immature Granulocytes % (auto) 0.2 %; Lymphocytes # (auto) 1.95 K/uL (1.2-3.4); Lymphocytes % (auto) 29.7 %; Mean Corpuscular Hemoglobin 31.7 pg (25-34); Mean Corpuscular Hgb Conc 35.5 g/dL (32-36); Mean Corpuscular Volume 89.4 fL (80-100); Mean Platelet Volume 10.7 fL (7.4-10.4); Monocytes # (auto) 0.79 K/uL (0.11-0.59); Neutrophils # (auto) 3.64 K/uL (1.4-6.5); Neutrophils % (auto) 55.5 %; Platelet Count 269 K/uL (130-400); RDW Coefficient of Variation 13.3 % (11.5-14.5); RDW Standard Deviation 44.3 fL (36.4-46.3); Red Blood Count 4.73 M/uL (4.2-5.4); White Blood Count 6.56 K/uL (4.8-10.8)
[2020-02-19 06:24] LABS: BUN Creatinine Ratio 14.3 (10-20); Blood Urea Nitrogen 11 mg/dl (7-18); Calcium 8.7 mg/dl (8.5-10.1); Carbon Dioxide 25 mmol/L (21-32); Chloride 107 mmol/L (98-107); Est GFR (African American) 94.9; Est GFR (Non-African American) 81.9; Glucose 86 mg/dl (70-99); Magnesium 2.5 mg/dl (1.8-2.4); Potassium 4.3 mmol/L (3.5-5.1); Sodium 138 mmol/L (136-145)
[2020-02-19 06:33] LABS: Chol HDL Ratio 3; Cholesterol 236 mg/dl (0-200); HDL Cholesterol 77 mg/dl; LDL Cholesterol Calculated 146 mg/dl; Triglycerides 64 mg/dl (0-150); Troponin I < 0.015 ng/ml (0-0.045); VLDL Cholesterol 13 mg/dl
[2020-02-19] MEDS: ASPIRIN 81 MG ECTAB PO SCH (08:12)
[2020-02-19] MEDS: FLUTICASONE PROPIONATE NA SPR 16 GM BTL SCH ×2 (08:12→20:00)
[2020-02-19] MEDS ORDERED: LOSARTAN POTASSIUM 25 MG TAB PO SCH (09:00)
--- NOTE | 2020-02-19 10:02 | Cardiology Consultation ---
Date of Consultation February 19, 2020 Assessment & Plan (1) Hypertension: I believe that she is suffering from symptomatic hypertension. She states that she is very sensitive to medications and did not tolerate lisinopril in the past. We will start losartan 25 mg daily today and increase as needed. Consideration may also be given to addition of amlodipine should be necessary. There are no structural abnormalities on her echocardiogram and her workup is negative for ischemia and no further testing is necessary at this time. Continue to monitor on telemetry overnight. (2) Volume depletion: Chronic Still appears to be volume depleted and will give 1 more L of normal saline now. 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 She is likely having an overactive bladder She would likely benefit from treatment however, would prefer to hold off for now so as not start to a medications at once. Will need to follow up with PCP as an outpatient. History of Present Illness Reason for Consultation: Hypertension Requesting Physician: Dr. urbano as Attending Physician: Shell Henderson MD History of Present Illness It was my pleasure to see Mrs. Escamilla in consultation today February 19, 2020. She is a very pleasant 69-year-old woman who does not routinely follow with Cardiology. She presented to the emergency department on the with complaints of ongoing headaches and dizziness. She states that for the last several days she has been having issues with headaches and lightheadedness and dizziness. She states that she has just felt as though something is been off and not right. She also suffered a significant left lower extremity cramp that was very painful for her. She has noticed that her blood pressures been significantly elevated at home as well. She did have some left arm numbness associated with the lower extremity cramps but denies any chest pain, shortness of breath or syncope. Allergies Allergy/AdvReac Type Severity Reaction Status Date / Time Sulfa (Sulfonamide Allergy Intermediate Tachycardia Verified 02/19/20 10:09 Antibiotics) pseudoephedrine AdvReac Intermediate Palpitations Verified 02/19/20 10:09 - [facility] Home Medications Home Medications Medication Instructions Recorded Confirmed Type azelastine-fluticasone [Dymista] 1 spray INTRANASAL BID PRN 06/03/19 02/18/20 History Lacto.acidophilus-Bif.animalis 2 cap PO QAM 02/14/20 02/18/20 History [Probiotic] Triphala 1 cap PO QAM 02/14/20 02/18/20 History fluticasone propionate [Xhance] 1 spray INTRANASAL BID 02/14/20 02/18/20 History ayyql-2x-hfs-epa-fish oil [[place]-3 1 cap PO QAM 02/14/20 02/18/20 History Fish Oil] aspirin 81 mg PO QAM 02/18/20 02/18/20 History ibuprofen [Advil] 200 mg PO Q6H PRN 02/18/20 02/18/20 History Patient History Medical History Esophageal reflux (Chronic) Social History Preferred Language: Macedonian Communication Ability: Effective Mold Puller Required: No Beliefs That Will Affect Care: None marital status: Current Living Situation: Spouse current occupational status: employed Feels Safe at Home: Yes Safety Concerns: Feels Safe At This Time Smoking Status: Never smoker Hx Alcohol Use: Yes Alcohol type: other Hx Substance Use: No Review of Systems Review of Systems: All systems reviewed & are unremarkable except as noted in HPI & below Physical Exam Physical Exam: General: Awake, alert and oriented x 3. No acute distress. HEENT: Normocephalic, atraumatic. Pupils equal, round and reactive to light and accommodation. Extraocular muscles are intact. Anicteric sclera. Moist mucous membranes. Neck: No JVD. No bruit. Cardiovascular: Regular. Positive S-4. Normal S-1 and S-2. No S-3. No murmurs or rubs. Pulmonary: Clear to auscultation B/L. No rales, rhonchi or wheezing Abdomen: Bowel sounds x 4, soft. No rebound, guarding or tenderness. No organomegaly. Extremities: No clubbing, cyanosis or edema. +2 pedal pulses bilaterally. Skin: Warm and dry. Results & Data ([facility]) Vital Signs (Past 12 Hours) Vital Signs Temp Pulse Pulse Pulse Resp BP BP 02/19/20 07:54 75 02/19/20 07:27 36.6 C 82 18 170/89 H 02/19/20 03:01 36.6 C 66 18 144/87 H 02/19/20 00:31 36.7 C 88 16 187/97 H Pulse Ox 02/19/20 07:54 02/19/20 07:27 94 02/19/20 03:01 99 02/19/20 00:31 98 Laboratory Results Laboratory Results - last 24 hr 02/18/20 02/18/20 02/19/20 20:00 22:50 05:47 WBC RBC Hgb Hct MCV MCH MCHC RDW Std Deviation RDW Coeff of Neal Plt Count MPV Immature Gran % (Auto) Neut % (Auto) Lymph % (Auto) Harper % (Auto) Eos % (Auto) Baso % (Auto) Neut # (Auto) Lymph # (Auto) Harper # (Auto) Eos # (Auto) Baso # (Auto) Immature Gran # (Auto) Sodium 138 D Potassium 4.3 Chloride 107 Carbon Dioxide 25 Anion Gap 6.0 BUN 11 Creatinine 0.75 Est Cr Clr Drug Dosing 49.0 Est GFR ( Amer) 94.9 Est GFR (Non-Af Amer) 81.9 BUN/Creatinine Ratio 14.3 Glucose 86 Calcium 8.7 Magnesium 2.5 H Troponin I < 0.015 < 0.015 < 0.015 Triglycerides 64 Cholesterol 236 H LDL Cholesterol, Calc 146 VLDL Cholesterol, Calc 13 HDL Cholesterol 77 Cholesterol/HDL Ratio 3 02/19/20 05:47 WBC 6.56 RBC 4.73 Hgb 15.0 Hct 42.3 MCV 89.4 MCH 31.7 MCHC 35.5 RDW Std Deviation 44.3 RDW Coeff of Neal 13.3 Plt Count 269 MPV 10.7 H Immature Gran % (Auto) 0.2 Neut % (Auto) 55.5 Lymph % (Auto) 29.7 Harper % (Auto) 12.0 Eos % (Auto) 2.0 Baso % (Auto) 0.6 Neut # (Auto) 3.64 Lymph # (Auto) 1.95 Harper # (Auto) 0.79 H Eos # (Auto) 0.13 Baso # (Auto) 0.04 Immature Gran # (Auto) 0.01 Sodium Potassium Chloride Carbon Dioxide Anion Gap BUN Creatinine Est Cr Clr Drug Dosing Est GFR ( Amer) Est GFR (Non-Af Amer) BUN/Creatinine Ratio Glucose Calcium Magnesium Troponin I Triglycerides Cholesterol LDL Cholesterol, Calc VLDL Cholesterol, Calc HDL Cholesterol Cholesterol/HDL Ratio Medications Administered Current Inpatient Medications Acetaminophen (Tylenol) 650 mg PO Q4H PRN PRN Reason: Pain or Fever Stop: 03/19/20 22:30 Aspirin (Ecotrin Ectab) [facility] Stop: 03/20/20 08:59 Last Admin: 02/19/20 08:12 Dose: 81 mg Documented by: Fluticasone Propionate (Flonase) 1 sprays NA BID [facility] Stop: 03/20/20 08:59 Last Admin: 02/19/20 08:12 Dose: 1 sprays Documented by: Sodium Chloride (Nss 1000ml) 1,000 mls @ 150 mls/hr IV .Q6H40M [facility] Stop: 03/20/20 10:14 Last Admin: 02/19/20 11:53 Dose: 150 mls/hr Documented by: Losartan Potassium (Cozaar) 25 mg PO QAM [facility] Stop: 03/20/20 08:59 Last Admin: 02/19/20 09:39 Dose: 25 mg Documented by: Nitroglycerin (Nitrostat) 0.4 mg SL UD PRN PRN Reason: Chest Pain Stop: 03/19/20 22:30 Pt's Own Med:~~~ DymistaNon- Formulary Patient's Own Med 1 ea STEPHANIE BID PRN PRN Reason: Allergy Symptoms Stop: 03/20/20 10:20 Last Admin: 02/19/20 14:51 Dose: 1 sprays Documented by: Ondansetron HCl (Zofran) 4 mg IV Q6H PRN PRN Reason: Nausea Stop: 03/19/20 22:30
[2020-02-19] MEDS: SODIUM CHLORIDE 0.9% 1000ML 1,000 ML IV SCH ×2 (11:53→18:47)
--- NOTE | 2020-02-19 14:15 | Electrocardiogram Report ---
Test Reason : Blood Pressure : / mmHG Vent. Rate : 080 BPM Atrial Rate : 080 BPM P-R Int : 146 ms QRS Dur : 090 ms QT Int : 366 ms P-R-T Axes : 072 073 048 degrees QTc Int : 422 ms Normal sinus rhythm Normal ECG When compared with ECG of 14-FEB-2020 20:15, No significant change was found Confirmed by Ronald Mathur ([id number]) on 02/19/2020 2:15:32 PM Referred By: REFERRED SELF Confirmed By:Zia Mathur
--- NOTE | 2020-02-19 14:21 | Electrocardiogram Report ---
Test Reason : Blood Pressure : / mmHG Vent. Rate : 075 BPM Atrial Rate : 075 BPM P-R Int : 140 ms QRS Dur : 092 ms QT Int : 398 ms P-R-T Axes : 055 080 069 degrees QTc Int : 444 ms Normal sinus rhythm Normal ECG When compared with ECG of 18-FEB-2020 15:45, (unconfirmed) No significant change was found Confirmed by Ronald Mathur ([id number]) on 02/19/2020 2:20:37 PM Referred By: REFERRED SELF Confirmed By:Zia Mathur
[2020-02-19] MEDS: DYMISTA NAE PRN (14:51)
[2020-02-19] MEDS ORDERED: LOSARTAN POTASSIUM 25 MG TAB PO ONE (17:08)
--- NOTE | 2020-02-19 17:26 | Hospitalist Progress Note ---
Date of Service February 19, 2020 Assessment & Plan (1) Hypertension: Dizzy spell lightheadedness: Stable secondary to hypertensive urgency Appreciate input from cardiology Started on losartan 25 mg daily Continue monitoring telemetry Echo shows no wall motion abnormality (2) Volume depletion: Chronic Given 1 L IV normal saline by cardiology Admission and Anticipated Discharge Date Admission Date: February 18, 2020 Subjective No complaint of dizzy spell or lightheadedness, no shortness of breath no dyspnea on exertion Patient reports of feeling much better today Review of Systems Review of Systems: All systems reviewed & are unremarkable except as noted in HPI & below Physical Exam Constitutional: WD/WN, vitals as above Eyes: PERRL, conjunctivae normal, anicteric sclerae ENMT: external ear and nose normal, oropharynx normal Neck: trachea midline, no thyromegaly Respiratory: normal respiratory effort, lungs clear to auscultation Cardiovascular: RRR, no murmur, no edema Gastrointestinal (Abdomen): normal bowel sounds, soft, nontender, no hepatosplenomegaly Musculoskeletal: no cyanosis or clubbing, extremities motor strength 5/5 Skin: no rashes, warm and dry Neurologic: PERRL, EOMI, accommodation nl, no face palsy, no dysarthria Psychiatric: A+Ox3, euthymic affect Results & Data Results & Data ([facility]) Vital Signs (Past 12 Hours) Vital Signs Temp Pulse Pulse Resp BP Pulse Ox 02/19/20 15:42 88 02/19/20 15:33 36.4 C L 81 18 171/90 H 98 02/19/20 11:39 36.9 C 99 H 18 154/104 H 97 02/19/20 07:54 75 02/19/20 07:27 36.6 C 82 18 170/89 H 94
[2020-02-19] MEDS ORDERED: Nursing to Pharmacy Communication SCH (20:30)
[2020-02-20] MEDS: SODIUM CHLORIDE 0.9% 1000ML 1,000 ML IV SCH ×2 (01:36→08:11)
[2020-02-20] MEDS: ASPIRIN 81 MG ECTAB PO SCH (08:12)
[2020-02-20] MEDS: FLUTICASONE PROPIONATE NA SPR 16 GM BTL SCH (08:13)
[2020-02-20] MEDS: DYMISTA NAE PRN (08:15)
[2020-02-20] MEDS ORDERED: LOSARTAN POTASSIUM 50 MG TAB PO SCH (09:00)
--- NOTE | 2020-02-20 10:28 | Cardiology Progress Note ---
Date of Service February 20, 2020 Assessment & Plan (1) Hypertension: Once again the pathophysiology and possible complications of uncontrolled hypertension were discussed with the patient and now with her . I believe the most prudent course of action would be to increase losartan to 100 mg p.o. this a.m. and see how she feels this afternoon after lunch. Should her blood pressures improve and she feels well I believe she should be discharged home. I recommend she obtain a home blood pressure cuff and keep a daily BP diary. My office will call to arrange close follow-up with her as an outpatient and she will be seen by me hopefully on the if possible We will also follow outpatient blood work to make sure her kidney function is tolerating the addition of the ARB. Both the patient and her state that they understand and they agree with the above plan. 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 She is likely having an overactive bladder She would likely benefit from treatment however, would prefer to hold off for now so as not start to a medications at once. Will need to follow up with PCP as an outpatient. Subjective Patient seen and examined, chart reviewed. She is out of bed in chair with her at the bedside and she states that she is feeling well. I did order a second dose of losartan last evening after her blood pressures remained elevated and she states that she did not feel very well after the second dose. She states that she started to feel nauseated and fatigued. However, after receiving initial dose in the a.m. she states that she felt great. She continues to deny experiencing any chest pain, shortness of breath or headaches. I ordered losartan 100 mg to be given this morning, however, the patient told nursing that she prefer to hold off on taking it and walk around the halls first to see if her blood pressure did not improve on its own. Telemetry reviewed: Normal sinus rhythm without arrhythmia or significant ectopy. Review of Systems Review of Systems: All systems reviewed & are unremarkable except as noted in HPI & below Physical Exam Physical Exam: General: Awake, alert and oriented x 3. No acute distress. HEENT: Normocephalic, atraumatic. Pupils equal, round and reactive to light and accommodation. Extraocular muscles are intact. Anicteric sclera. Moist mucous membranes. Neck: No JVD. No bruit. Cardiovascular: Regular. Positive S-4. Normal S-1 and S-2. No S-3. No murmurs or rubs. Pulmonary: Clear to auscultation B/L. No rales, rhonchi or wheezing Abdomen: Bowel sounds x 4, soft. No rebound, guarding or tenderness. No organomegaly. Extremities: No clubbing, cyanosis or edema. +2 pedal pulses bilaterally. Skin: Warm and dry. Results & Data Vital Signs (Past 12 Hours) Vital Signs Temp Pulse Pulse Resp BP Pulse Ox 02/20/20 07:33 80 02/20/20 07:30 36.4 C L 88 20 165/101 H 97 02/20/20 04:02 36.4 C L 82 18 171/88 H 100 02/20/20 00:09 69 02/19/20 23:00 36.6 C 73 18 183/97 H 99
--- NOTE | 2020-02-20 15:34 | Electrocardiogram Report ---
Test Reason : Blood Pressure : / mmHG Vent. Rate : 075 BPM Atrial Rate : 075 BPM P-R Int : 146 ms QRS Dur : 084 ms QT Int : 396 ms P-R-T Axes : 058 078 068 degrees QTc Int : 442 ms Normal sinus rhythm Normal ECG When compared with ECG of 19-FEB-2020 06:17, No significant change was found Confirmed by Ronald Mathur ([id number]) on 02/20/2020 3:34:05 PM Referred By: REFERRED SELF Confirmed By:Zia Mathur
[2020-02-20] MEDS ORDERED: AMLODIPINE BESYLATE 5 MG TAB PO ONE (15:37)
--- NOTE | 2020-02-20 17:54 | Hospitalist Progress Note ---
Date of Service February 20, 2020 Assessment & Plan (1) Hypertension: Dizzy spell lightheadedness: Possible secondary to hypertensive urgency BP was more than 190 in ER Not on any antihypertensive meds From family history of high blood pressure and stroke Cardiology consulted appreciate input Started on losartan 100 mg daily Echo shows no wall motion abnormality Will be discharged home today Instruction given for low-salt diet Home blood pressure monitoring Blood pressure follow-up/hospital follow-up scheduled with family physician in 48 hours (2) Volume depletion: Received IV fluids, Patient has normal appetite, no nausea vomiting or diarrhea Feels like her normal self Disposition: Discharged home today Admission and Anticipated Discharge Date Admission Date: February 19, 2020 Subjective No complaint of headache, no dizzy spell or lightheadedness Very anxious to be discharged home Received losartan 100 mg this morning Evaluated by cardiology earlier, Patient denies of any chest pain no shortness of breath no dyspnea on exertion SBP still borderline elevated [id number] Patient reports of being very anxious, not able to sleep last night Also she has white coat hypertension Feels at home her blood pressure should improve, And is scheduled to see family physician in 2 days on 02/23/2020 Discharge home today with antihypertensive losartan 100 mg daily Review of Systems Review of Systems: All systems reviewed & are unremarkable except as noted in HPI & below Physical Exam Constitutional: WD/WN, vitals as above Eyes: PERRL, conjunctivae normal, anicteric sclerae ENMT: external ear and nose normal, oropharynx normal Neck: trachea midline, no thyromegaly Respiratory: normal respiratory effort, lungs clear to auscultation Cardiovascular: RRR, no murmur, no edema Gastrointestinal (Abdomen): normal bowel sounds, soft, nontender, no hepatosplenomegaly Musculoskeletal: no cyanosis or clubbing, extremities motor strength 5/5 Skin: no rashes, warm and dry Neurologic: PERRL, EOMI, accommodation nl, no face palsy, no dysarthria Psychiatric: A+Ox3, euthymic affect Results & Data Results & Data ([facility]) Vital Signs (Past 12 Hours) Vital Signs Temp Pulse Pulse Pulse Resp BP BP 02/20/20 17:08 36.9 C 88 85 18 187/97 H 170/91 H 02/20/20 15:01 36.9 C 85 18 170/91 H 02/20/20 14:20 81 02/20/20 13:05 90 198/103 H 02/20/20 11:12 36.8 C 83 20 193/99 H 02/20/20 07:33 80 02/20/20 07:30 36.4 C L 88 20 165/101 H Pulse Ox 02/20/20 17:08 98 02/20/20 15:01 98 02/20/20 14:20 02/20/20 13:05 02/20/20 11:12 98 02/20/20 07:33 02/20/20 07:30 97
--- NOTE | 2020-02-20 17:55 | Discharge Summary ---
Date of Service February 20, 2020 Admission HPI Per Admitting Provider [facility], [place] History and Physical Report Signed Patient: Gertrude GOMES Date: 02/18/20 MR#: [id number] Phy: Shell Henderson MD Acct ID:[id number] Phy: Willie Burch DO Date: 1950Fam Phy: Age: 69Location: 2N Sex: F Room/Bed: [facility] cc: ~ DICTATED BY: Ezio Wiseman MD DATE OF ADMISSION: 02/18/2020 CHIEF COMPLAINT: Dizziness and palpitations. HISTORY OF PRESENT ILLNESS: A 69-year-old female with no significant past medical history, comes with dizziness and palpitations. The patient was here in the ER on 02/14/2020, at that time she presented with cramping sensation in the left leg and the left upper extremity and there is a plan to admit the patient to rule out acute coronary syndrome. At that time, she has numbness in left upper extremity, but her symptoms improved and was thought that maybe she was out in the sun and dehydrated and she wanted to go home and follow with her PCP. The patient says she went home, she was doing fine until today when she was ambulating, felt dizzy and palpitations, not feeling good and so she came back to the ER. Currently, resting comfortably and hemodynamically stable. Her workup is negative so far with EKG and troponins and labs were all fine. ER physician did a CTA of the head and neck, which was also unremarkable, only thing was her blood pressure running somewhat high. Denies any chest pain, no shortness of breath, no cough, no fever, no chills, no loss of sense of smell or taste. Currently no blurred vision, no earache, no headache, no runny nose, no sore throat, no dysphagia. Appetite is okay. Sleeps okay. No nausea, no abdominal pain. Normal bowel and bladder movements. No swelling in the legs, no rash. Principal Diagnosis Hypertensive urgency Dizzy spell/palpitations secondary to uncontrolled high blood pressure Discharge Exam Constitutional WD/WN, vitals as above Eyes PERRL, conjunctivae normal, anicteric sclerae ENMT external ear and nose normal, oropharynx normal Neck trachea midline, no thyromegaly Respiratory normal respiratory effort, lungs clear to auscultation Cardiovascular RRR, no murmur, no edema Gastrointestinal (Abdomen) normal bowel sounds, soft, nontender, no hepatosplenomegaly Musculoskeletal no cyanosis or clubbing, extremities motor strength 5/5 Skin no rashes, warm and dry Neurologic PERRL, EOMI, accommodation nl, no face palsy, no dysarthria Psychiatric A+Ox3, euthymic affect Discharge Data Allergies Allergy/AdvReac Type Severity Reaction Status Date / Time Sulfa (Sulfonamide Allergy Intermediate Tachycardia Verified 02/19/20 10:09 Antibiotics) pseudoephedrine AdvReac Intermediate Palpitations Verified 02/19/20 10:09 - [facility] Consultations 02/18/20 21:14 ED Decision to Admit Stat 02/18/20 22:31 Consult Case Management - Discharge Planning Routine 02/19/20 08:00 Consult Cardiology Routine Ordered Studies 02/18/20 18:10 CT angio head wo/w Stat CT angio neck with con Stat Hospital Course (1) Hypertension: Dizzy spell lightheadedness: Possible secondary to hypertensive urgency BP was more than 190 in ER Not on any antihypertensive meds From family history of high blood pressure and stroke Cardiology consulted appreciate input Started on losartan 100 mg daily Echo shows no wall motion abnormality Will be discharged home today Instruction given for low-salt diet Home blood pressure monitoring Blood pressure follow-up/hospital follow-up scheduled with family physician in 48 hours (2) Volume depletion: Received IV fluids, Patient has normal appetite, no nausea vomiting or diarrhea Feels like her normal self Disposition: Discharged home today Total Time Total Time Spent Total Time Spent (In Minutes): 35 minutes Total Time Includes: Examination of the Patient, Discharge Planning and Medication Reconciliation Discharge Plan Discharge Items Patient Disposition: Home - Self-Care Reason For Visit: DIZZINESS, PALPITATIONS Discharge Diagnosis: Hypertensive urgency Dizzy spell/palpitations secondary to uncontrolled high blood pressure Activity: Resume your previous activity Non-emergency contact: Primary Care Provider Call non-emergency contact if: you have any medication questions Follow-up/Referrals: Willie Burch DO [Primary Care Provider] - 02/23/20 12:00 pm (02/23/2020 12:00 PM Provider Anthony Pearson DO Department Family Practice [facility] ) Diet: Heart Healthy and Low Sodium (2gm) Addtl Attending Provider Instructions: Follow-up with family physician for further adjustment of blood pressure medications as indicated Avoid salt in your diet which can cause high blood pressure Pending Studies at Discharge: No Stand-Alone Forms: My [facility], Smoking Cessation Medications and DC Order Prescriptions: New losartan 50 mg Tablet 100 mg PO QAM 30 Days Qty: 60 RF: 3 Continued azelastine-fluticasone [Dymista] 137-50 mcg/spray [place],Non-Aerosol 1 spray INTRANASAL BID PRN (Reason: Headache) RF: 0 Probiotic 5 billion cell Capsule, Sprinkle 2 cap PO QAM RF: 0 [place]-3 Fish Oil 300-1,000 mg Capsule 1 cap PO QAM RF: 0 Xhance 93 mcg/actuation aerosol breath activated 1 spray INTRANASAL BID RF: 0 Triphala 1 cap PO QAM RF: 0 aspirin 81 mg Tablet,Delayed Release (Dr/Ec) 81 mg PO QAM RF: 0 Discontinued ibuprofen [Advil] 200 mg Tablet 200 mg PO Q6H PRN (Reason: Fever Or Pain) RF: 0 Discharge Orders: Discharge Order (Routine); Ordered 02/20/20 Ordered By: Shell Mccullough/Other Patient Handouts: Low-Salt Choices, Diet Low Salt Dc, ED High Blood Pressure Established Out of Control Admission Data Admit Date/Time: 02/19/20 17:26 Attending Provider: Shell Henderson Admit Provider: Ezio Wiseman Primary Care Provider: Willie Burch Other Providers: Ezio Wiseman ; Jah Price ; Suman Madsen ; David Marquez ; Marcio Veliz ; Maikol Bryant ; Eric Covarrubias ; Daina Gallardo ; Evelyn Solomon ; Ever Velez Other Interventions: Discharge Summary Assessment (RN) Last Done: 02/20/20 17:08
== END 2020-02-20 18:00 | disposition home or self-care (01) | DRG 305 ==
LOC: ED 15:18 → 2N 15:18

== ENCOUNTER 2023-07-27 06:49 | Inpatient (IN) ==
[2023-07-27] MEDS ORDERED: SODIUM CHLORIDE 0.9% 500 ML IV ONE (07:04)
--- NOTE | 2023-07-27 07:08 | Emergency Department Note ---
History of Present Illness General Chief complaint: Neuro Symptoms/Deficit Stated complaint: DIZZY SPELL,HEADACHE LFT SIDE,TINGLING LFT SIDE Time Seen by Provider: 07/27/23 07:03 Source: patient, family ( who is at the bedside), RN notes reviewed and old records reviewed (She was admitted in February 20, 2024 dizziness and palpation) Mode of arrival: ambulatory Limitations: no limitations History of Present Illness This patient is 73-year-old female who woke up at 530 this morning felt dizzy like it spinning she had a mild left-sided headache she says she feels generally weak right now. She feels a little tingling in her left arm. No difficulty speaking or swallowing no fall or trauma no chest pain shortness of breath or palpitations. No numbness or weakness of her legs. She feels significantly better than she did earlier but still feels off. Home Medications Medication Instructions Recorded Confirmed Type Dymista 137 mcg-50 mcg/spray nasal 1 spray intranasal BID 90 days #3 06/23/23 07/27/23 Rx spray (azelastine-fluticasone) BTLS azelastine 137 mcg (0.1 %) nasal 2 spray intranasal DAILY #30 mL 06/30/23 07/27/23 Rx spray aerosol fluticasone propionate 50 2 spray intranasal DAILY #48 grams 06/30/23 07/27/23 Rx mcg/actuation nasal spray,suspension (Flonase Allergy Relief) loratadine 5 mg chewable tablet 5 mg PO DAILY PRN Allergy Symptoms 07/27/23 07/27/23 History (Children's Loratadine) Allergies Allergy/AdvReac Type Severity Reaction Status Date / Time diphenhydramine Allergy Severe Paleness Unverified 07/27/23 09:23 [From Benadryl] gluten Allergy Intermediate Gastrointestinal Unverified 07/27/23 09:22 Upset lisinopril Allergy Intermediate Hypertensio Unverified 07/27/23 09:21 n Milk Containing Products Allergy Intermediate Gastrointestinal Unverified 07/27/23 09:22 (Dairy) Upset Sulfa (Sulfonamide Allergy Intermediate Tachycardia Verified 07/27/23 09:21 Antibiotics) losartan Allergy Unknown Verified 07/27/23 09:21 pseudoephedrine AdvReac Intermediate Palpitations Verified 07/27/23 09:21 - DECONGESTANTS Past Med/Surg History Medical History Seasonal allergies Esophageal reflux Surgical History No pertinent past surgical history Family History Mother Hypertension Stroke Heart disease Denies family history of Hearing loss No family history of adverse response to anesthesia No family history of bleeding disorder Allergies Cancer Asthma Social History Smoking Status: Never smoker Tobacco Type: Cigarettes Do You Dip or Chew Tobacco: No; Hx Alcohol Use: Yes Alcohol type: other Alcohol Intake Frequency: Monthly or Less Hx Substance Use: No Preferred Language: Ethiopian Communication Ability: Effective Dairy Technician Required: No Beliefs That Will Affect Care: None marital status: Current Living Situation: Spouse current occupational status: employed How many Children do You have: 0 Feels Safe at Home: Yes Assistive Devices: None Review of Systems A total of 10 systems reviewed and were otherwise negative Physical Exam Vital Signs Vital Signs - 24 hr 07/27/23 06:50 07/27/23 06:52 07/27/23 08:14 Temperature 36.5 C Temperature Source Temporal Artery Scan Pulse Rate 82 68 Pulse Rate [Apical] Pulse Rhythm [Apical] Pulse Strength [Apical] Respiratory Rate 18 Respiratory Effort / Characteristics Respiratory Depth Normal Blood Pressure 205/104 H Blood Pressure [Left Arm] Blood Pressure Mean 137 Blood Pressure Mean [Left Arm] Pulse Oximetry 97 97 Oxygen Delivery Method Room Air Room Air Sepsis Recent Fever Within 48 Hours No Sepsis New/Unexplained Change in Mental Status No Sepsis Action Taken by Nursing No Action Required 07/27/23 08:50 Temperature 36.7 C Temperature Source Oral Pulse Rate Pulse Rate [Apical] 82 Pulse Rhythm [Apical] Regular Pulse Strength [Apical] Normal Respiratory Rate 18 Respiratory Effort / Characteristics Non-Labored Respiratory Depth Normal Blood Pressure Blood Pressure [Left Arm] 208/119 H Blood Pressure Mean Blood Pressure Mean [Left Arm] 148 Pulse Oximetry 98 Oxygen Delivery Method Room Air Sepsis Recent Fever Within 48 Hours Sepsis New/Unexplained Change in Mental Status Sepsis Action Taken by Nursing General: Well developed well nourished older female who appears in no acute distress, breathing comfortably on room air. Normal speech, nonslurred. HEENT: Normal cephalic atraumatic. No facial asymmetry or droop. Pupils are equal round and reactive to light. Extraocular movements are intact. Oropharynx is pink with moist mucous membranes. No swelling of the mouth lips or tongue. Neck: Supple with a midline trachea. No meningeal signs or stiffness, no JVD or bruits. No Stridor. Chest: Clear to auscultation bilaterally. No wheezes or rhonchi. No increased work of breathing. Heart: Regular rate and rhythm without murmurs or gallops. Abdomen: Soft nontender, nondistended without rebound guarding or rigidity. Extremities: No cyanosis clubbing or edema. No calf tenderness or assymetry Spine/Back. Non tender to palpation. No CVA tenderness Skin: Good turgor without rashes. Neurologic exam: Cranial nerves two through 12 are intact. Motor and sensation are intact and symmetrical throughout. Normal gait. No ataxia. She says that she feels tingly in the left arm but feels that normally when I touch her. Course Administered Medications Discontinued Medications Aspirin (Aspirin 81 Mg Chew) 324 mg PO NOW STA Stop: 07/27/23 08:05 Last Admin: 07/27/23 08:16 Dose: 324 mg Documented By: KWAKU Sodium Chloride (Nss) 500 mls @ 999 mls/hr IV .Q31M ONE Stop: 07/27/23 07:34 Last Infusion: 07/27/23 09:16 Dose: Infused Documented By: Admin: 07/27/23 07:46 Dose: 999 mls/hr Documented By: KWAKU Ioversol (Optiray 320 125ml) 118 ml IV ONCE ONE Stop: 07/27/23 07:21 Last Admin: 07/27/23 07:16 Dose: 118 ml Documented By: ZHENG Critical Care Time Critical Care Time: Yes Total Critical Care Time: 30 Due to the patient's acute neurologic symptoms, concern for an acute stroke, need for expedited and timely evaluation for consideration for thrombolytics, evaluation with the stroke neurologist, discussions with the family and the patient and consultations, I have personally spent greater than 30 minutes of critical care time in the direct management of this patient. This includes bedside care, interpretation of diagnostic studies, and testing, discussion with consultants, patient, and family members, and other required patient management activities. This 30 minutes is in excess of all separately billable procedures. Medical Decision Making Differential Diagnosis Stroke, TIA, vascular disease, hypertension, intracranial process, arrhythmia, cardiac disease, anemia, electrolyte or metabolic abnormality Medical Records Attestation: I reviewed the patient's medical records. Home Medications Current Medication List: was personally reviewed by me Laboratory Data Attestation: I reviewed the patient's lab results. 07/27/23 07:06 07/27/23 07:06 Lab Results 07/27/23 Range/Units 07:06 WBC 5.78 (4.8-10.8) K/ul RBC 5.37 (4.20-5.40) M/uL Hgb 15.8 (12.0-16.0) g/dl Hct 46.6 (37.0-47.0) % MCV 86.8 (80.0-100.0) fL MCH 29.4 (25.0-34.0) pg MCHC 33.9 (32.0-36.0) g/dL RDW Std Deviation 43.3 (36.4-46.3) fL RDW Coeff of Neal 13.6 (11.5-14.5) % Plt Count 307 (130-400) K/uL MPV 10.2 (9.4-12.4) fL Immature Gran % (Auto) 0.3 % Neut % (Auto) 52.2 % Lymph % (Auto) 36.5 % [place] % (Auto) 7.8 % Eos % (Auto) 2.2 % Baso % (Auto) 1.0 % Neut # (Auto) 3.01 (1.40-6.50) K/uL Lymph # (Auto) 2.11 (1.20-3.40) K/uL [place] # (Auto) 0.45 (0.11-0.59) K/uL Eos # (Auto) 0.13 (0.00-0.50) K/uL Baso # (Auto) 0.06 (0.00-0.20) K/uL Immature Gran # (Auto) 0.02 (0.01-0.20) K/uL PT 10.2 (9.0-12.0) Seconds INR 0.9 (0.9-1.1) APTT 28 (21-31) Seconds PTT Ratio 1.0 Sodium 132 L (136-145) mmol/L Potassium 4.2 (3.5-5.1) mmol/L Chloride 100 (98-107) mmol/L Carbon Dioxide 26 (21-32) mmol/L Anion Gap 6 (3-11) BUN 19 (6-23) mg/dl Creatinine 0.82 (0.6-1.2) mg/dl Est Cr Clr Drug Dosing 42.3 ml/min Est GFR ( Amer) 82.9 ml/min Est GFR (Non-Af Amer) 71.5 ml/min BUN/Creatinine Ratio 23.2 H (10-20) Glucose 98 (70-99(Fasting)) mg/dl POC Glucose 94 (70-99) mg/dl Calcium 9.2 (8.6-10.3) mg/dl Magnesium 2.1 (1.7-2.4) mg/dl Total Bilirubin 0.6 (0.2-1.0) mg/dl AST 14 (13-39) U/L ALT 10 (7-52) U/L Alkaline Phosphatase 94 (34-104) U/L Troponin I High Sens 3.4 (0-14) pg/ml Total Protein 7.3 (6.0-8.3) gm/dl Albumin 4.7 (3.4-5.0) gm/dl Globulin 2.6 (2.5-4.0) gm/dl Albumin/Globulin Ratio 1.8 (0.9-2) Blood Type B Positive Antibody Screen NEGATIVE Imaging Data Attestation: I personally reviewed and interpreted this imaging study as follows: My Impression: Head CTno acute hemorrhage or mass effect seen Radiologist's Impression: Head CT 07/27/23 07:03 CT OF THE HEAD WITHOUT CONTRAST CLINICAL HISTORY: neuro deficit, acute stroke suspected COMPARISON STUDY: Head CT February 14, 2020. TECHNIQUE: Helical axial images of the head were obtained without IV contrast. Automated exposure control was utilized for the study. A dose lowering technique was utilized adhering to the principles of ALARA. FINDINGS: No acute intracranial hemorrhage, midline shift or mass effect is present. The ventricular system is unremarkable. The basal cisterns are patent. No extra-axial collections are present. There are no findings to suggest acute dural sinus thrombosis or acute territorial infarct. No significant calvarial abnormalities are present. Visualized portions of the sinuses and mastoid air cells are clear. IMPRESSION: No acute intracranial findings. ACT 112: Negative or not required by law. Electronically signed by: Carlos Childs M.D. 07/27/2023 7:30 AM Head CTA 07/27/23 07:03 CTA ANGIOGRAPHY OF THE HEAD CLINICAL HISTORY: neuro deficit, acute stroke suspected COMPARISON STUDY: CTA of the head February 18, 2020. TECHNIQUE: Helical axial images of the head were obtained following uneventful intravenous administration of 118 cc of Optiray. Sagittal and coronal reconstructions were viewed as well as maximal intensity projections on an independent 3-D workstation. Automated exposure control was utilized for the study. A dose lowering technique was utilized adhering to the principles of ALARA. FINDINGS: The bilateral M1, M2, A1 and A2 segments are patent. No large vessel occlusion is noted. There is mild plaque within bilateral cavernous carotids without significant stenosis. Moderate narrowing of the distal portion of the right vertebral artery is similar to CT of February 18, 2020. No vessel occlusion within the posterior circulation is identified. There is no intracranial aneurysm. Ventricular system is normal. Basal cisterns are patent. There are no extra-axial collections. No acute hemorrhage was identified on the unenhanced CT which will be reported separately. IMPRESSION: 1. No large vessel occlusion. No intracranial aneurysm. 2. No change in moderate narrowing of the distal right vertebral artery since CTA of February 18, 2020. 3. Mild plaque within the intracranial vessels. ACT 112: Negative or not required by law. Electronically signed by: Carlos Childs M.D. 07/27/2023 7:44 AM Neck CTA 07/27/23 07:03 CT ANGIOGRAPHY OF THE NECK WITH CONTRAST CLINICAL HISTORY: neuro deficit, acute stroke suspected COMPARISON STUDY: CTA of the neck February 18, 2020. Technique: CT angiography of the carotid and vertebral arteries was obtained using Optiray and 3D reconstruction on an independent workstation. NASCET criteria was utilized. Automated exposure control was utilized for the study. A dose lowering technique was utilized adhering to the principles of ALARA. CT DOSE: 1021.29 mGy.cm Findings: Visualized portions of the lung apices are unremarkable. There is no cervical lymphadenopathy. There is no cervical spine fracture. There is moderate calcified and noncalcified plaque within the proximal right internal carotid artery. This results in mild stenosis. The vessel measures 2.6 mm at site of narrowing and 4 mm distally. This represents 40% stenosis. There is minimal plaque within the proximal left internal carotid artery without stenosis. There are no stenoses within the cervical portions of the bilateral vertebral arteries. There is moderate plaque within the intracranial portion of the right vertebral artery. There is moderate narrowing of the distal right vertebral artery, similar to prior CT. There is no aneurysm or dissection within the neck. IMPRESSION: 1. 40% stenosis of the proximal internal carotid artery. 2. Moderate narrowing of the distal right vertebral artery, similar to prior CT of February 18, 2020. ACT 112: Negative or not required by law. Electronically signed by: Carlos Childs M.D. 07/27/2023 7:41 AM Brain MRI 07/27/23 08:04 MRI OF THE BRAIN WITHOUT CONTRAST CLINICAL HISTORY: dizzy, left hand numbness COMPARISON STUDY: Head CT and CTA of the head performed earlier today. TECHNIQUE: Utilizing a 1.5 Addie magnet and dedicated coil, multiplanar, multiecho imaging of the brain was performed without IV contrast. Patient was unable to tolerate the entire exam. FINDINGS: There are 2 small foci of restricted diffusion within the right cerebellar hemisphere. The larger focus measures 1.4 x 0.4 cm. These are hypointense on the ADC map and represent acute infarcts. This study could not be completed however there is no evidence for mass effect or hemorrhagic conversion. No additional foci of restricted diffusion are present. Ventricular system is normal. Basal cisterns are patent. Prominence of the extra-axial spaces is incidentally noted. Calvarial signal is normal. IMPRESSION: 1. Two small acute infarcts within the right cerebellar hemisphere, measuring up to 1.4 x 0.4 cm. No mass effect. No hemorrhage. 2. Incomplete MRI, as described above. However, this study is diagnostic for evaluation for acute infarct. ACT 112: Negative or not required by law. Electronically signed by: Carlos Childs M.D. 07/27/2023 9:09 AM ECG Data Attestation: I personally reviewed and interpreted this ECG as follows: Indication: + weakness Rate (beats per minute): 88 Rhythm: + normal sinus and + other (Poor baseline/artifact) ECG Intervals/blocks: + Normal QRS, + Normal QT and + Normal [place] ECG [place]: + Normal ECG ST segments: + Normal ST segments ECG Findings: no PACs or no PVCs Comparison ECG Date: from (02/20/2020) Change: no significant change MDM Narrative This patient comes in as described above. She was placed in room B2. I saw her promptly in fact started evaluate her in triage due to her neurologic type symptoms. Although she has a normal neurologic exam at present, she subjectively feels tingling her left hand had some dizziness . she seems to doing better when I ambulate her she has no ataxia . I did stroke alert her to expedite her care. Her initial blood pressure was elevated. IV access was established and she was hydrated with an IV normal saline bolus. Multiple blood testing was obtained and she was placed on a panel monitor. I did talk to Dr. Gaona from telestroke. The patient did have onset of symptoms at 530. She seems to doing better at present. EKG shows no ischemic changes blood sugar is within normal limits. She was evaluated stroke neurologist as well. Dr. Gaona did not feel the patient met lytic criteria as her symptoms have resolved and were minimal initially. She did come back from the CT and CT angiography and says she feels fine the numbness in her hand is gone she is no longer dizzy. The rest of her workup was essentially unremarkable. She has no acute electrolyte or metabolic abnormalities. She has nothing to suggest acute coronary syndrome or arrhythmia. Her blood pressure was moderately elevated. I did load her with aspirin 324 mg chewable. I talked to the patient and her at length and told them that I recommend she be admitted as she has strokelike symptoms. The patient does not want to be admitted but did agree to do an MRI. The MRI did show 2 acute infarcts in the cerebellar area on the right without hemorrhage. I went back and talk to the patient and her again and she now does agree to to staying. She has been hydrated. She is asymptomatic and doing well at present but had an acute neurologic event with an MRI showing stroke. I have consulted and discussed the case at length with Radha, the [facility] and the patient will be seen in the ER for these measures Continuous cardiac monitoring: Orders placed in EMR for continuous cardiac monitoring: Pulm evaluation patient noted to be in normal sinus rhythm with a rate of 70 Impression & Plan Acute CVA (cerebrovascular accident), Dizziness, Hypertension, Tingling of left upper extremity Discharge Plan Visit Data Chief Complaint: Neuro Symptoms/Deficit Stated Complaint: DIZZY SPELL,HEADACHE LFT SIDE,TINGLING LFT SIDE ED Provider: Cesar Robles Discharge Problem: Acute CVA (cerebrovascular accident), Dizziness, Hypertension, Tingling of left upper extremity Discharge Instructions Interventions: ED Discharge Assessment Last Done: 07/27/23 11:41 Discharge Problem: Hypertension Qualifiers: Hypertension type: unspecified Qualified Code(s): I10 - Essential (primary) hypertension
[2023-07-27] MEDS ORDERED: OPTIRAY 320 125ml IV ONE (07:20)
[2023-07-27 07:21] LABS: Basophils # (auto) 0.06 K/uL (0.00-0.20); Eosinophils # (auto) 0.13 K/uL (0.00-0.50); Eosinophils % (auto) 2.2 %; Hematocrit (blood only) 46.6 % (37.0-47.0); Hemoglobin 15.8 g/dl (12.0-16.0); Immature Granulocytes # (auto) 0.02 K/uL (0.01-0.20); Immature Granulocytes % (auto) 0.3 %; Lymphocytes # (auto) 2.11 K/uL (1.20-3.40); Lymphocytes % (auto) 36.5 %; Mean Corpuscular Hemoglobin 29.4 pg (25.0-34.0); Mean Corpuscular Hgb Conc 33.9 g/dL (32.0-36.0); Mean Corpuscular Volume 86.8 fL (80.0-100.0); Mean Platelet Volume 10.2 fL (9.4-12.4); Monocytes # (auto) 0.45 K/uL (0.11-0.59); Monocytes % (auto) 7.8 %; Neutrophils # (auto) 3.01 K/uL (1.40-6.50); Neutrophils % (auto) 52.2 %; Platelet Count 307 K/uL (130-400); RDW Coefficient of Variation 13.6 % (11.5-14.5); RDW Standard Deviation 43.3 fL (36.4-46.3); Red Blood Count 5.37 M/uL (4.20-5.40); White Blood Count 5.78 K/ul (4.8-10.8)
[2023-07-27 07:32] LABS: INR 0.9 (0.9-1.1); Partial Thromboplastin Time 28 Seconds (21-31); Prothrombin Time 10.2 Seconds (9.0-12.0)
--- NOTE | 2023-07-27 07:33 | CT Scan Report ---
CT OF THE HEAD WITHOUT CONTRAST CLINICAL HISTORY: neuro deficit, acute stroke suspected COMPARISON STUDY: Head CT February 14, 2020. TECHNIQUE: Helical axial images of the head were obtained without IV contrast. Automated exposure con trol was utilized for the study. A dose lowering technique was utilized adhering to the principles o f ALARA. FINDINGS: No acute intracranial hemorrhage, midline shift or mass effect is present. The ventricular system is unremarkable. The basal cisterns are patent. No extra-axial collections are present. There are no findings to suggest acute dural sinus thrombosis or acute territorial infarct. No significant calvarial abnormalities are present. Visualized portions of the sinuses and mastoid air cells are azeb ar. IMPRESSION: No acute intracranial findings. ACT 112: Negative or not required by law. Electronically signed by: Carlos Childs M.D. 07/27/2023 7:30 AM
--- NOTE | 2023-07-27 07:42 | CT Scan Report ---
CT ANGIOGRAPHY OF THE NECK WITH CONTRAST CLINICAL HISTORY: neuro deficit, acute stroke suspected COMPARISON STUDY: CTA of the neck February 18, 2020. Technique: CT angiography of the carotid and vertebral arteries was obtained using Optiray and 3D rec onstruction on an independent workstation. NASCET criteria was utilized. Automated exposure control was utilized for the study. A dose lowering technique was utilized adhering to the principles of ALA RA. CT DOSE: 1021.29 mGy.cm Findings: Visualized portions of the lung apices are unremarkable. There is no cervical lymphadenopat hy. There is no cervical spine fracture. There is moderate calcified and noncalcified plaque within t he proximal right internal carotid artery. This results in mild stenosis. The vessel measures 2.6 mm at site of narrowing and 4 mm distally. This represents 40% stenosis. There is minimal plaque within the proximal left internal carotid artery without stenosis. There are no stenoses within the cervical portions of the bilateral vertebral arteries. There is moderate plaque within the intracranial porti on of the right vertebral artery. There is moderate narrowing of the distal right vertebral artery, s imilar to prior CT. There is no aneurysm or dissection within the neck. IMPRESSION: 1. 40% stenosis of the proximal internal carotid artery. 2. Moderate narrowing of the distal right vertebral artery, similar to prior CT of February 18, 2020. ACT 112: Negative or not required by law. Electronically signed by: Carlos Childs M.D. 07/27/2023 7:41 AM
[2023-07-27 07:45] LABS: Albumin Globulin Ratio 1.8 (0.9-2); Albumin Level 4.7 gm/dl (3.4-5.0); BUN Creatinine Ratio 23.2 (10-20); Bilirubin,Total 0.6 mg/dl (0.2-1.0); Calcium 9.2 mg/dl (8.6-10.3); Creatinine Clr Calc Pharmacy 42.3 ml/min; Est GFR (African American) 82.9 ml/min; Est GFR (Non-African American) 71.5 ml/min; Globulin 2.6 gm/dl (2.5-4.0); Magnesium 2.1 mg/dl (1.7-2.4); Potassium 4.2 mmol/L (3.5-5.1); Total Protein 7.3 gm/dl (6.0-8.3)
--- NOTE | 2023-07-27 07:45 | CT Scan Report ---
CTA ANGIOGRAPHY OF THE HEAD CLINICAL HISTORY: neuro deficit, acute stroke suspected COMPARISON STUDY: CTA of the head February 18, 2020. TECHNIQUE: Helical axial images of the head were obtained following uneventful intravenous administr ation of 118 cc of Optiray. Sagittal and coronal reconstructions were viewed as well as maximal inten sity projections on an independent 3-D workstation. Automated exposure control was utilized for the study. A dose lowering technique was utilized adhering to the principles of ALARA. FINDINGS: The bilateral M1, M2, A1 and A2 segments are patent. No large vessel occlusion is noted. Th ere is mild plaque within bilateral cavernous carotids without significant stenosis. Moderate narrowi ng of the distal portion of the right vertebral artery is similar to CT of February 18, 2020. No vessel o cclusion within the posterior circulation is identified. There is no intracranial aneurysm. Ventricul ar system is normal. Basal cisterns are patent. There are no extra-axial collections. No acute hemorr alisha was identified on the unenhanced CT which will be reported separately. IMPRESSION: 1. No large vessel occlusion. No intracranial aneurysm. 2. No change in moderate narrowing of the distal right vertebral artery since CTA of February 18, 2020. 3. Mild plaque within the intracranial vessels. ACT 112: Negative or not required by law. Electronically signed by: Carlos Childs M.D. 07/27/2023 7:44 AM
[2023-07-27 07:53] LABS: Troponin I High Sensitivity 3.4 pg/ml (0-14)
[2023-07-27] MEDS ORDERED: ASPIRIN 81 MG CHEW PO STA (08:04)
--- NOTE | 2023-07-27 09:11 | Magnetic Resonance Report ---
MRI OF THE BRAIN WITHOUT CONTRAST CLINICAL HISTORY: dizzy, left hand numbness COMPARISON STUDY: Head CT and CTA of the head performed earlier today. TECHNIQUE: Utilizing a 1.5 Addie magnet and dedicated coil, multiplanar, multiecho imaging of the bra in was performed without IV contrast. Patient was unable to tolerate the entire exam. FINDINGS: There are 2 small foci of restricted diffusion within the right cerebellar hemisphere. The larger focus measures 1.4 x 0.4 cm. These are hypointense on the ADC map and represent acute infarcts . This study could not be completed however there is no evidence for mass effect or hemorrhagic conve rsion. No additional foci of restricted diffusion are present. Ventricular system is normal. Basal ci sterns are patent. Prominence of the extra-axial spaces is incidentally noted. Calvarial signal is no rmal. IMPRESSION: 1. Two small acute infarcts within the right cerebellar hemisphere, measuring up to 1.4 x 0.4 cm. No mass effect. No hemorrhage. 2. Incomplete MRI, as described above. However, this study is diagnostic for evaluation for acute inf arct. ACT 112: Negative or not required by law. Electronically signed by: Carlos Childs M.D. 07/27/2023 9:09 AM
--- NOTE | 2023-07-27 10:12 | History & Physical Report ---
Date of Service July 27, 2023 Assessment & Plan (1) CVA (cerebral vascular accident): (2) Hypertensive emergency: Plan This is a 73-year-old female who has a significant past medical history of allergic rhinitis who presents to ED secondary to acute onset episode of dizzin ess at approximately 530 this morning. Acute CVA Hypertensive emergency --MRI Two small acute infarcts within the right cerebellar hemisphere, measuring up to 1.4 x 0.4 cm. No mass effect. No hemorrhage. admit to PCU consult neurology allow for permissive hypertension, treat if > 220/120, close BP monitoring she is not on any oral antihypertensives at baseline obtain lipid panel, a1c, bmp, cbc, tsh in a.m. initiate asa 81mg daily and atorvastatin 40mg daily she received 325mg ASA in ED PT/OT/ST obtain echocardiogram eval for pfo - per cardiology pt does appear to have a small PFO; however given age, htn, hld would likely not close it repeat ecg due to artifact on initial HLD chart review in [facility] revealed total Chol 318, trig 120, HDL 92, LDL 202 high intensity statin ordered Vitamin D def noted in outpatient [facility], vit d 29 will start supplement DVT ppx: SCDs for now, consider chemical prophylaxis in a.m. if no further neurologic change Dispo: PCU PCP: Marcin FULL CODE Pt was seen and examined in collaboration with Dr. Vazquez, please see addendum A total of 81 was spent coordinating, documenting, and providing care for this patient excluding time spent in the performance of separately billed services. This included personally viewing all current laboratories and imaging studies, medication reconciliation, outpatient chart review, and discussion with specialists. History of Present Illness Chief Complaint: Stroke like sx upon arrival. Primary Care Provider: Willie Burch This is a 73-year-old female who has a significant past medical history of allergic rhinitis who presents to ED secondary to acute onset episode of dizziness at approximately 530 this morning. She does follow with primary care provider Dr. Willie Burch. She also follows with Dr. Kingston regarding allergies. Other than nasal spray she does not take any prescription medications on a regular basis. She states over the last 6 weeks she has been dealing with cold-like symptoms and earlier this week she did take 2 doses of azithromycin. She is typically an early riser and when she woke up this morning she initially felt well. At approximately 530 this morning she had an acute episode of profound dizziness that left her unable to do anything. She is unsure how long symptoms lasted, several minutes to an hour. It was associated with inability and difficulty with walking. She also noted left arm numbness and slight weakness. She called multiple times. Her symptoms have completely resolved. Per discussion with ER provider she was a telestroke. She did not qualify for thrombolytic therapy as her symptoms were improving. Initially patient wanted to be discharged but was agreeable to an MRI Brain MRI revealed 2 small acute infarcts within the right cerebellar hemisphere measuring up to 1.4 x 0.4 cm. She states she does have history of hypertension however it is controlled with exercise and diet and does not take any oral antihypertensives. In ED patient was significantly hypertensive with blood pressures 200s over 100s. Her CBC was unremarkable, her CMP was generally unremarkable as well except for mild low sodium 132. Her troponin was undetectable. is at bedside who also helps elicit history. Oupatient records reviewed. Allergies Allergy/AdvReac Type Severity Reaction Status Date / Time diphenhydramine Allergy Severe Paleness Unverified 07/28/23 15:24 [From Benadryl] gluten Allergy Intermediate Gastrointestinal Unverified 07/28/23 15:24 Upset lisinopril Allergy Intermediate Hypertensio Unverified 07/28/23 15:24 n Milk Containing Products Allergy Intermediate Gastrointestinal Unverified 07/28/23 15:24 (Dairy) Upset Sulfa (Sulfonamide Allergy Intermediate Tachycardia Verified 07/28/23 15:24 Antibiotics) losartan Allergy Unknown Verified 07/28/23 15:24 pseudoephedrine AdvReac Intermediate Palpitations Verified 07/28/23 15:24 - DECONGESTANTS Home Medications Medication Instructions Recorded Confirmed Type azelastine 137 mcg (0.1 %) nasal 2 spray intranasal DAILY #30 mL 06/30/23 07/28/23 Rx spray aerosol fluticasone propionate 50 2 spray intranasal DAILY #48 grams 06/30/23 07/28/23 Rx mcg/actuation nasal spray,suspension (Flonase Allergy Relief) loratadine 5 mg chewable tablet 5 mg PO DAILY PRN Allergy Symptoms 07/27/23 07/28/23 History (Children's Loratadine) aspirin 81 mg tablet,delayed 400 mg PO DAILY 07/28/23 07/28/23 History release (Adult Low Dose Aspirin) azelastine-fluticasone 137 mcg-50 1 spray intranasal BID #3 ea 07/29/23 07/29/23 Rx mcg/spray nasal spray amoxicillin 875 mg-potassium 1 tab PO BID 10 days #20 tabs 07/30/23 07/30/23 Rx clavulanate 125 mg tablet Past Med/Surg History Medical History Seasonal allergies Esophageal reflux Surgical History No pertinent past surgical history Family History Mother Hypertension Stroke Heart disease Denies family history of Hearing loss No family history of adverse response to anesthesia No family history of bleeding disorder Allergies Cancer Asthma Social History Smoking Status: Never smoker Tobacco Type: Cigarettes Do You Dip or Chew Tobacco: No; Hx Alcohol Use: No Hx Substance Use: No Preferred Language: Telugu Communication Ability: Effective Launch Check Out Required: No Beliefs That Will Affect Care: None marital status: Current Living Situation: Spouse current occupational status: employed How many Children do You have: 0 Feels Safe at Home: Yes Assistive Devices: Glasses Review of Systems Review of Systems: All systems reviewed & are unremarkable except as noted in HPI & below Physical Exam Physical Exam: Constitutional: WD/WN, vitals as above, NAD, sitting up in bed, pleasant, conversing easily Head: Normocephalic, Atraumatic Eyes: PERRL, conjunctivae normal, anicteric sclerae ENMT: external ear and nose normal, oropharynx normal Neck: trachea midline, no thyromegaly normal visual inspection Respiratory: normal respiratory effort, lungs clear to auscultation, no wheeze, rales, rhonchi. Normal insp/exp effort, no accessory muscle use Cardiovascular: RRR, no murmur, no edema Vessels: no JVD or carotid bruit Chest: normal inspection of chest Abdomen: normal bowel sounds, soft, nontender, no hepatosplenomegaly Musculoskeletal: no cyanosis or clubbing, extremities motor strength 5/5 Skin: no rashes, warm and dry normal turgor Neurologic: PERRL, EOMI, accommodation nl, no face palsy, no dysarthria CN's II-XI intact bilaterally and moves all extremities Psychiatric: A+Ox3, euthymic affect Lymphatic: no cervical or axillary lymphadenopathy : deferred Results & Data Results & Data Vital Signs (Past 12 Hours) Vital Signs Temp Pulse Pulse Resp BP BP Pulse Ox 07/27/23 08:50 36.7 C 82 18 208/119 H 98 07/27/23 08:14 68 07/27/23 06:52 36.5 C 82 18 205/104 H 97 O2 Del Method 07/27/23 08:50 Room Air 07/27/23 08:14 07/27/23 06:52 Room Air Laboratory Results I have independently reviewed and interpreted patient's admitting labs including CBC, CMP, PTT, PT/INR, mag and troponin. Diagnostic Findings Head CT 07/27/23 07:03 CT OF THE HEAD WITHOUT CONTRAST CLINICAL HISTORY: neuro deficit, acute stroke suspected COMPARISON STUDY: Head CT February 14, 2020. TECHNIQUE: Helical axial images of the head were obtained without IV contrast. Automated exposure control was utilized for the study. A dose lowering technique was utilized adhering to the principles of ALARA. FINDINGS: No acute intracranial hemorrhage, midline shift or mass effect is present. The ventricular system is unremarkable. The basal cisterns are patent. No extra-axial collections are present. There are no findings to suggest acute dural sinus thrombosis or acute territorial infarct. No significant calvarial abnormalities are present. Visualized portions of the sinuses and mastoid air cells are clear. IMPRESSION: No acute intracranial findings. ACT 112: Negative or not required by law. Electronically signed by: Carlos Childs M.D. 07/27/2023 7:30 AM Head CTA 07/27/23 07:03 CTA ANGIOGRAPHY OF THE HEAD CLINICAL HISTORY: neuro deficit, acute stroke suspected COMPARISON STUDY: CTA of the head February 18, 2020. TECHNIQUE: Helical axial images of the head were obtained following uneventful intravenous administration of 118 cc of Optiray. Sagittal and coronal reconstructions were viewed as well as maximal intensity projections on an independent 3-D workstation. Automated exposure control was utilized for the study. A dose lowering technique was utilized adhering to the principles of ALARA. FINDINGS: The bilateral M1, M2, A1 and A2 segments are patent. No large vessel occlusion is noted. There is mild plaque within bilateral cavernous carotids without significant stenosis. Moderate narrowing of the distal portion of the right vertebral artery is similar to CT of February 18, 2020. No vessel occlusion within the posterior circulation is identified. There is no intracranial aneurysm. Ventricular system is normal. Basal cisterns are patent. There are no extra-axial collections. No acute hemorrhage was identified on the unenhanced CT which will be reported separately. IMPRESSION: 1. No large vessel occlusion. No intracranial aneurysm. 2. No change in moderate narrowing of the distal right vertebral artery since CTA of February 18, 2020. 3. Mild plaque within the intracranial vessels. ACT 112: Negative or not required by law. Electronically signed by: Carlos Childs M.D. 07/27/2023 7:44 AM Neck CTA 07/27/23 07:03 CT ANGIOGRAPHY OF THE NECK WITH CONTRAST CLINICAL HISTORY: neuro deficit, acute stroke suspected COMPARISON STUDY: CTA of the neck February 18, 2020. Technique: CT angiography of the carotid and vertebral arteries was obtained using Optiray and 3D reconstruction on an independent workstation. NASCET criter ia was utilized. Automated exposure control was utilized for the study. A dose lowering technique was utilized adhering to the principles of ALARA. CT DOSE: 1021.29 mGy.cm Findings: Visualized portions of the lung apices are unremarkable. There is no cervical lymphadenopathy. There is no cervical spine fracture. There is moderate calcified and noncalcified plaque within the proximal right internal carotid artery. This results in mild stenosis. The vessel measures 2.6 mm at site of narrowing and 4 mm distally. This represents 40% stenosis. There is minimal plaque within the proximal left internal carotid artery without stenosis. There are no stenoses within the cervical portions of the bilateral vertebral arteries. There is moderate plaque within the intracranial portion of the right vertebral artery. There is moderate narrowing of the distal right vertebral artery, similar to prior CT. There is no aneurysm or dissection within the neck. IMPRESSION: 1. 40% stenosis of the proximal internal carotid artery. 2. Moderate narrowing of the distal right vertebral artery, similar to prior CT of February 18, 2020. ACT 112: Negative or not required by law. Electronically signed by: Carlos Childs M.D. 07/27/2023 7:41 AM Brain MRI 07/27/23 08:04 MRI OF THE BRAIN WITHOUT CONTRAST CLINICAL HISTORY: dizzy, left hand numbness COMPARISON STUDY: Head CT and CTA of the head performed earlier today. TECHNIQUE: Utilizing a 1.5 Addie magnet and dedicated coil, multiplanar, multiecho imaging of the brain was performed without IV contrast. Patient was unable to tolerate the entire exam. FINDINGS: There are 2 small foci of restricted diffusion within the right cerebellar hemisphere. The larger focus measures 1.4 x 0.4 cm. These are h ypointense on the ADC map and represent acute infarcts. This study could not be completed however there is no evidence for mass effect or hemorrhagic conversion. No additional foci of restricted diffusion are present. Ventricular system is normal. Basal cisterns are patent. Prominence of the extra-axial spaces is incidentally noted. Calvarial signal is normal. IMPRESSION: 1. Two small acute infarcts within the right cerebellar hemisphere, measuring up to 1.4 x 0.4 cm. No mass effect. No hemorrhage. 2. Incomplete MRI, as described above. However, this study is diagnostic for evaluation for acute infarct. ACT 112: Negative or not required by law. Electronically signed by: Carlos Childs M.D. 07/27/2023 9:09 AM Medications Administered Medication List Discontinued Medications Aspirin (Aspirin 81 Mg Chew) 324 mg PO NOW STA Stop: 07/27/23 08:05 Last Admin: 07/27/23 08:16 Dose: 324 mg Documented By: KWAKU Sodium Chloride (Nss) 500 mls @ 999 mls/hr IV .Q31M ONE Stop: 07/27/23 07:34 Last Infusion: 07/27/23 09:16 Dose: Infused Documented By: Admin: 07/27/23 07:46 Dose: 999 mls/hr Documented By: KWAKU Ioversol (Optiray 320 125ml) 118 ml IV ONCE ONE Stop: 07/27/23 07:21 Last Admin: 07/27/23 07:16 Dose: 118 ml Documented By: ZHENG ECG Additional Comments: I have independently reviewed and interpreted patient's admitting EKG which revealed: 88, NSR,PVC, artifact COVID-19 Results Results COVID-19 Adm Lab Results: RBC 5.37 M/uL (4.20-5.40) 07/27/23 WBC 5.78 K/ul (4.8-10.8) 07/27/23 Hgb 15.8 g/dl (12.0-16.0) 07/27/23 Hct 46.6 % (37.0-47.0) 07/27/23 Plt Count 307 K/uL (130-400) 07/27/23 Neutrophils (%) (Auto) 52.2 % 07/27/23 Lymphocytes (%) (Auto) 36.5 % 07/27/23 Monocytes # (Auto) 0.45 K/uL (0.11-0.59) 07/27/23 Eosinophils # (Auto) 0.13 K/uL (0.00-0.50) 07/27/23 Immature Granulocyte % (Auto) 0.3 % 07/27/23 Neutrophils # (Auto) 3.01 K/uL (1.40-6.50) 07/27/23 Lymphocytes # (Auto) 2.11 K/uL (1.20-3.40) 07/27/23 Monocytes # (Auto) 0.45 K/uL (0.11-0.59) 07/27/23 Eosinophils # (Auto) 0.13 K/uL (0.00-0.50) 07/27/23 Basophils # (Auto) 0.06 K/uL (0.00-0.20) 07/27/23 Immature Granulocyte # (Auto) 0.02 K/uL (0.01-0.20) 3 Na 132 mmol/L (136-145) L 07/27/23 K 4.2 mmol/L (3.5-5.1) 07/27/23 Cl 100 mmol/L (98-107) 07/27/23 CO2 26 mmol/L (21-32) 07/27/23 Anion Gap 6 (3-11) 07/27/23 BUN 19 mg/dl (6-23) 07/27/23 Creatinine 0.82 mg/dl (0.6-1.2) 07/27/23 BUN/Creatinine Ratio 23.2 (10-20) H 07/27/23 Glucose Level 98 mg/dl (70-99(Fasting)) 07/27/23 Ca 9.2 mg/dl (8.6-10.3) 07/27/23 Total Bilirubin 0.6 mg/dl (0.2-1.0) 07/27/23 AST/SGOT 14 U/L (13-39) 07/27/23 ALT/SGPT 10 U/L (7-52) 07/27/23 Alkaline Phosphatase 94 U/L (34-104) 07/27/23 Total Protein 7.3 gm/dl (6.0-8.3) 07/27/23 Albumin 4.7 gm/dl (3.4-5.0) 07/27/23 Globulin 2.6 gm/dl (2.5-4.0) 07/27/23 Albumin/Globulin Ratio 1.8 (0.9-2) 07/27/23 PTT 28 Seconds (21-31) 07/27/23 INR 0.9 (0.9-1.1) 07/27/23 Code Status & VTE Plan Code Status FULL CODE VTE Prophylaxis Plan VTE Prophylaxis will be ordered: Yes Supervising Physician Co-Signing Physician Notes Pt was seen and examined. Agreed with Nelly Honeycutt exam, assessment and plan. 73-year-old female who has a significant past medical history of allergic rhinitis who presents to the ER for dizziness. Pt said that dizziness started early this morning. She said that she has been dealing with cold like symptoms for the last 6 months. She said that dizziness got worst where she was unable to do anything. She said that she has difficulty to walk. She also noted left arm numbness and slight weakness. BP in the ER was elevated with SBP in the 200's. CT head showed no acute intracranial abnormality. CTA neck showed 40% stenosis of the proximal internal carotid artery. Moderate narrowing of the distal right vertebral artery, similar to prior CT of February 18, 2020. CTA head showed no large vessel occlusion. No intracranial aneurysm. No change in moderate narrowing of the distal right vertebral artery since CTA of February 18, 2020. Mild plaque within the intracranial vessels. MRI of brain showed two small acute infarcts within the right cerebellar hemisphere, measuring up to 1.4 x 0.4 cm. No mass effect. No hemorrhage. Received aspirin 325 mg in the ED x1. Will continue aspirin and adding statin. Will get an echo. Will consult neuro. Will monitor closely in tele. MD George (1) CVA (cerebral vascular accident) Laterality of affected vessel: right
[2023-07-27] MEDS ORDERED: ATORVASTATIN 40 MG TAB PO SCH (11:40)
[2023-07-27] MEDS ORDERED: ACETAMINOPHEN 325 MG TAB PO PRN (11:40)
[2023-07-27] MEDS ORDERED: POLYETHYLENE (MIRALAX) 17 GM PACK PO PRN (11:40)
[2023-07-27] MEDS ORDERED: PHARMACIST DISCHARGE MED REC CONSULT PRN (11:40)
[2023-07-27] MEDS ORDERED: ALUMINUM/MAGNESIUM SUSP 30 ML UDC PO PRN (11:40)
[2023-07-27] MEDS ORDERED: MAGNESIUM HYDROXIDE SUSP 30 ML UDC PO PRN (11:40)
[2023-07-27] MEDS ORDERED: ONDANSETRON INJ 2 MG/ML 2 ML VIAL IV PRN (11:40)
--- NOTE | 2023-07-27 17:26 | Neurology Consultation ---
Date of Consultation July 27, 2023 Assessment & Plan (1) Thrombotic stroke involving right cerebellar artery: Stroke etiology could be athero embolic vs cardioembolic Plan For secondary stroke prevention start Aspirin 325mg. Atorvastatin 80mg Treat blood pressure if above 190 with PRN labetalol 10mg Start amlodipine 5 mg in am Echo shows a EF 55-60%, borderline ventricular hypertrophy and a small PFO recommend duplex scan of LE s Will need a Ziopatch on discharge Telehealth Consultation Telehealth Information Telehealth Information: I performed this visit using a real-time telehealth connection between my location and the patients location ([facility]). After connecting through interactive tele-video, patient was identified by name and date of and/or wristband check.Patient (or authorized healthcare wire rope sales representative) was informed that this was a telemedicine visit and it was being conducted confidentially over secure lines. My office door was closed and no one else was present in the room with me.Patient (or authorized healthcare wire rope sales representative) provided consent to proceed with the visit, expressed an under standing of privacy and security of the telemedicine visit, and gave permission to have a hospital wire rope sales representative in the room in order to assist with the visit and to conduct portions of the visit, as needed. I informed the patient (or authorized healthcare wire rope sales representative) that I reviewed their record and presented the opportunity for them to ask any questions regarding the visit today. The patient agreed to participate. History of Present Illness Reason for Consultation: Dr Greer Attending Physician: Kiran Greer MD History of Present Illness Melva Hunt is a 73 Y.O female patient with a PMH significant for Multiple allergies , HTN , GERD who presented to the ED with dizziness and left upper extremity tingling this am. She states that she wakes up early in the morning at 4:30 am , at around 5:30 while looking at her phone she felt dizzy, She also felt left arm numbness She came to ED , where her symptoms resolved She has been struggling with URI for which she has been prescribed Azithromycin, has been using fludrocortisone nasal spray She has been under stress, due to illness of her cats Allergies Allergy/AdvReac Type Severity Reaction Status Date / Time diphenhydramine Allergy Severe Paleness Unverified 07/27/23 09:23 [From Benadryl] gluten Allergy Intermediate Gastrointestinal Unverified 07/27/23 09:22 Upset lisinopril Allergy Intermediate Hypertensio Unverified 07/27/23 09:21 n Milk Containing Products Allergy Intermediate Gastrointestinal Unverified 07/27/23 09:22 (Dairy) Upset Sulfa (Sulfonamide Allergy Intermediate Tachycardia Verified 07/27/23 09:21 Antibiotics) losartan Allergy Unknown Verified 07/27/23 09:21 pseudoephedrine AdvReac Intermediate Palpitations Verified 07/27/23 09:21 - DECONGESTANTS Home Medications Medication Instructions Recorded Confirmed Type Dymista 137 mcg-50 mcg/spray nasal 1 spray intranasal BID 90 days #3 06/23/23 07/27/23 Rx spray (azelastine-fluticasone) BTLS azelastine 137 mcg (0.1 %) nasal 2 spray intranasal DAILY #30 mL 06/30/23 07/27/23 Rx spray aerosol fluticasone propionate 50 2 spray intranasal DAILY #48 grams 06/30/23 07/27/23 Rx mcg/actuation nasal spray,suspension (Flonase Allergy Relief) loratadine 5 mg chewable tablet 5 mg PO DAILY PRN Allergy Symptoms 07/27/23 07/27/23 History (Children's Loratadine) Patient History Medical History Seasonal allergies Esophageal reflux Surgical History No pertinent past surgical history Family History Mother Hypertension Stroke Heart disease Denies family history of Hearing loss No family history of adverse response to anesthesia No family history of bleeding disorder Allergies Cancer Asthma Social History Smoking Status: Never smoker Tobacco Type: Cigarettes Do You Dip or Chew Tobacco: No; Hx Alcohol Use: No Hx Substance Use: No Preferred Language: Cambodian Communication Ability: Effective Call Center Consultant Required: No Beliefs That Will Affect Care: None marital status: Current Living Situation: Spouse current occupational status: employed How many Children do You have: 0 Other Information That Helps Us Care for You: No Feels Safe at Home: Yes Safety Concerns: Feels Safe At This Time Assistive Devices: Glasses Review of Systems Constitutional: Patient denies weight loss, fever, chills, and night sweats Eyes: Patient denies change in vision, tearing, pain, and redness ENT: Patient denies pain, bleeding, rhinorrhea, and dysphagia Cardiovascular: Patient denies chest pain, palpitation, dyspnea at rest, and d yspnea with exertion Respiratory: Patient denies shortness of breath, cough, wheezing, and productive cough GI: Patient denies reflux, pain, constipation, and diarrhea Skin: Patient denies rash, dryness, and itching Allergies/Immune System: Patient denies rhinorrhea, seasonal allergies, reaction to current MEDS, and joint swelling Endocrine: Patient denies weight loss, weight gain, temperature intolerance, and excessive thirst Neurological: All negative unless mentioned in the HPI Physical Exam General NEUROLOGIC EXAMINATION: Mental Status:alert, oriented to time, place, person, normal recent memory, normal remote memory, normal attention span, normal concentration, normal language and normal fund of knowledge Cranial Nerves: CN 2 - no visual defect on confrontation and pupils round, equal, reactive to light CN 3, 4, 6 - extra-ocular movements intact and no nystagmus CN 5 - facial sensation intact CN 7 - no facial asymmetry CN 8 - intact hearing CN 9, 10 - palate symmetric, normal gag CN 11 - good shoulder shrug CN 12 - tongue midline MOTOR: Strength was at least antigravity throughout, Pronator drift was absent and There were no abnormal movements SENSATION: intact and symmetric to pinprick, light touch, vibration and joint position GAIT: stable, no ataxia and can perform tandem walking COORDINATION: no ataxia with finger to nose testing and heel to faust testing REFLEXES: cannot assess over telemedicine NIH Stroke Scale: 1a. Level of Consciousness: alert = 0 1b. LOC Questions: (month, age): both correct = 0 1c. LOC Commands (open and close eyes, make fist and let go using non-paretic hand): obeys both correctly = 0 2. Best Gaze (eyes open and patient follows examiner's finger or face): normal = 0 3. Visual (visual threat or finger counting in each quadrant): no loss = 0 4. Facial Palsy (show teeth, raise eye brows and squeeze eyes shut, or grimace symmetry in a comatose patient): normal = 0 5a. Motor Arm (extend arm (palms down) to 90 degrees and score drift/movement (10 seconds) - Left: no drift = 0 5b. Motor Arm: (extend arm (palms down) to 90 degrees and score drift/movement (10 seconds) - Right: no drift = 0 6a. Motor Leg (elevate leg 30 degrees and score drift/ movement (5 seconds) - Left: no drift = 0 6b. Motor Leg (elevate leg 30 degrees and score drift/ movement (5 seconds) - Right: no drift = 0 7. Limb Ataxia (finger to nose, heel down faust): absent = 0 8. Sensory (pin prick to face, arm, trunk and leg, compare side to side): normal = 0 9. Best Language: no aphasia = 0 10. Dysarthria (evaluate speech clarity by patient repeating listed words): normal articulation = 0 11. Extinction and Inattention: no neglect = 0 Total: 0 Results & Data Vital Signs (Past 12 Hours) Vital Signs Temp Pulse Pulse Resp BP BP Pulse Ox 07/27/23 17:04 36.7 C 84 18 191/93 H 97 07/27/23 15:09 71 07/27/23 15:00 74 19 97 07/27/23 15:00 155/90 H 07/27/23 13:38 76 18 175/118 H 98 07/27/23 12:00 70 16 171/114 H 99 07/27/23 11:40 72 20 171/114 H 97 07/27/23 11:40 07/27/23 11:00 72 17 175/96 H 99 07/27/23 10:45 188/103 H 07/27/23 08:50 36.7 C 82 18 208/119 H 98 07/27/23 08:14 68 07/27/23 08:12 69 22 99 07/27/23 08:12 68 17 208/119 H 99 07/27/23 07:21 217/119 H 07/27/23 07:10 84 24 208/118 H 07/27/23 06:52 36.5 C 82 18 205/104 H 97 07/27/23 06:50 97 Pulse Ox O2 Del Method O2 Del Method 07/27/23 17:04 Room Air 07/27/23 15:09 07/27/23 15:00 07/27/23 15:00 12/19/23 13:38 07/27/23 12:00 07/27/23 11:40 Room Air 07/27/23 11:40 99 Room Air 07/27/23 11:00 07/27/23 10:45 07/27/23 08:50 Room Air 07/27/23 08:14 07/27/23 08:12 07/27/23 08:12 07/27/23 07:21 07/27/23 07:10 07/27/23 06:52 Room Air 07/27/23 06:50 Room Air Laboratory Results Laboratory Results - last 24 hr 07/27/23 07:06 WBC 5.78 RBC 5.37 Hgb 15.8 Hct 46.6 MCV 86.8 MCH 29.4 MCHC 33.9 RDW Std Deviation 43.3 RDW Coeff of Neal 13.6 Plt Count 307 MPV 10.2 Immature Gran % (Auto) 0.3 Neut % (Auto) 52.2 Lymph % (Auto) 36.5 Nye % (Auto) 7.8 Eos % (Auto) 2.2 Baso % (Auto) 1.0 Neut # (Auto) 3.01 Lymph # (Auto) 2.11 Nye # (Auto) 0.45 Eos # (Auto) 0.13 Baso # (Auto) 0.06 Immature Gran # (Auto) 0.02 PT 10.2 INR 0.9 APTT 28 PTT Ratio 1.0 Sodium 132 L Potassium 4.2 Chloride 100 Carbon Dioxide 26 Anion Gap 6 BUN 19 Creatinine 0.82 Est Cr Clr Drug Dosing 42.3 Est GFR ( Amer) 82.9 Est GFR (Non-Af Amer) 71.5 BUN/Creatinine Ratio 23.2 H Glucose 98 POC Glucose 94 Calcium 9.2 Magnesium 2.1 Total Bilirubin 0.6 AST 14 ALT 10 Alkaline Phosphatase 94 Troponin I High Sens 3.4 Total Protein 7.3 Albumin 4.7 Globulin 2.6 Albumin/Globulin Ratio 1.8 Blood Type B Positive Antibody Screen NEGATIVE Diagnostic Findings Head CT 07/27/23 07:03 CT OF THE HEAD WITHOUT CONTRAST CLINICAL HISTORY: neuro deficit, acute stroke suspected COMPARISON STUDY: Head CT February 14, 2020. TECHNIQUE: Helical axial images of the head were obtained without IV contrast. Automated exposure control was utilized for the study. A dose lowering technique was utilized adhering to the principles of ALARA. FINDINGS: No acute intracranial hemorrhage, midline shift or mass effect is present. The ventricular system is unremarkable. The basal cisterns are patent. No extra-axial collections are present. There are no findings to suggest acute dural sinus thrombosis or acute territorial infarct. No significant calvarial abnormalities are present. Visualized portions of the sinuses and mastoid air cells are clear. IMPRESSION: No acute intracranial findings. ACT 112: Negative or not required by law. Electronically signed by: Carlos Childs M.D. 07/27/2023 7:30 AM Head CTA 07/27/23 07:03 CTA ANGIOGRAPHY OF THE HEAD CLINICAL HISTORY: neuro deficit, acute stroke suspected COMPARISON STUDY: CTA of the head February 18, 2020. TECHNIQUE: Helical axial images of the head were obtained following uneventful intravenous administration of 118 cc of Optiray. Sagittal and coronal reconstructions were viewed as well as maximal intensity projections on an independent 3-D workstation. Automated exposure control was utilized for the study. A dose lowering technique was utilized adhering to the principles of ALARA. FINDINGS: The bilateral M1, M2, A1 and A2 segments are patent. No large vessel occlusion is noted. There is mild plaque within bilateral cavernous carotids without significant stenosis. Moderate narrowing of the distal portion of the right vertebral artery is similar to CT of February 18, 2020. No vessel occlusion within the posterior circulation is identified. There is no intracranial aneurysm. Ventricular system is normal. Basal cisterns are patent. There are no extra-axial collections. No acute hemorrhage was identified on the unenhanced CT which will be reported separately. IMPRESSION: 1. No large vessel occlusion. No intracranial aneurysm. 2. No change in moderate narrowing of the distal right vertebral artery since CTA of February 18, 2020. 3. Mild plaque within the intracranial vessels. ACT 112: Negative or not required by law. Electronically signed by: Carols Childs M.D. 07/27/2023 7:44 AM Neck CTA 07/27/23 07:03 CT ANGIOGRAPHY OF THE NECK WITH CONTRAST CLINICAL HISTORY: neuro deficit, acute stroke suspected COMPARISON STUDY: CTA of the neck February 18, 2020. Technique: CT angiography of the carotid and vertebral arteries was obtained using Optiray and 3D reconstruction on an independent workstation. NASCET criteria was utilized. Automated exposure control was utilized for the study. A dose lowering technique was utilized adhering to the principles of ALARA. CT DOSE: 1021.29 mGy.cm Findings: Visualized portions of the lung apices are unremarkable. There is no cervical lymphadenopathy. There is no cervical spine fracture. There is moderate calcified and noncalcified plaque within the proximal right internal carotid artery. This results in mild stenosis. The vessel measures 2.6 mm at site of narrowing and 4 mm distally. This represents 40% stenosis. There is minimal plaque within the proximal left internal carotid artery without stenosis. There are no stenoses within the cervical portions of the bilateral vertebral arteries. There is moderate plaque within the intracranial portion of the right vertebral artery. There is moderate narrowing of the distal right vertebral artery, similar to prior CT. There is no aneurysm or dissection within the neck. IMPRESSION: 1. 40% stenosis of the proximal internal carotid artery. 2. Moderate narrowing of the distal right vertebral artery, similar to prior CT of February 18, 2020. ACT 112: Negative or not required by law. Electronically signed by: Carlos Childs M.D. 07/27/2023 7:41 AM Brain MRI 07/27/23 08:04 MRI OF THE BRAIN WITHOUT CONTRAST CLINICAL HISTORY: dizzy, left hand numbness COMPARISON STUDY: Head CT and CTA of the head performed earlier today. TECHNIQUE: Utilizing a 1.5 Addie magnet and dedicated coil, multiplanar, multiecho imaging of the brain was performed without IV contrast. Patient was unable to tolerate the entire exam. FINDINGS: There are 2 small foci of restricted diffusion within the right cerebellar hemisphere. The larger focus measures 1.4 x 0.4 cm. These are hypointense on the ADC map and represent acute infarcts. This study could not be completed however there is no evidence for mass effect or hemorrhagic conversion . No additional foci of restricted diffusion are present. Ventricular system is normal. Basal cisterns are patent. Prominence of the extra-axial spaces is incidentally noted. Calvarial signal is normal. IMPRESSION: 1. Two small acute infarcts within the right cerebellar hemisphere, measuring up to 1.4 x 0.4 cm. No mass effect. No hemorrhage. 2. Incomplete MRI, as described above. However, this study is diagnostic for evaluation for acute infarct. ACT 112: Negative or not required by law. Electronically signed by: Carlos Childs M.D. 07/27/2023 9:09 AM
--- NOTE | 2023-07-27 20:18 | Communication Note ---
Date of Service: July 27, 2023 Notified by RN of patient intent to leave hospital AGAINST MEDICAL ADVICE. Undersigned currently attending to multiple ER admissions. Patient unwilling to wait for provider to go over concerns. Patient signed AMA paper as per RN.
--- NOTE | 2023-07-28 01:49 | Discharge Summary ---
Date of Service July 27, 2023 (late entry) Admission HPI Per Admitting Provider This is a 73-year-old female who has a significant past medical history of allergic rhinitis who presents to ED secondary to acute onset episode of dizziness at approximately 530 this morning. She does follow with primary care provider Dr. Willie Burch. She also follows with Dr. Kingston regarding allergies. Other than nasal spray she does not take any prescription medications on a regular basis. She states over the last 6 weeks she has been dealing with cold-like symptoms and earlier this week she did take 2 doses of azithromycin. She is typically an early riser and when she woke up this morning she initially felt well. At approximately 530 this morning she had an acute episode of profound dizziness that left her unable to do anything. She is unsure how long symptoms lasted, several minutes to an hour. It was associated with inability and difficulty with walking. She also noted left arm numbness and slight weakness. She called multiple times. Her symptoms have completely resolved. Per discussion with ER provider she was a telestroke. She did not qualify for thrombolytic therapy as her symptoms were improving. Initially patient wanted to be discharged but was agreeable to an MRI Brain MRI revealed 2 small acute infarcts within the right cerebellar hemisphere measuring up to 1.4 x 0.4 cm. She states she does have history of hypertension however it is controlled with exercise and diet and does not take any oral antihypertensives. In ED patient was significantly hypertensive with blood pressures 200s over 100s. Her CBC was unremarkable, her CMP was generally unremarkable as well except for mild low sodium 132. Her troponin was undetectable. is at bedside who also helps elicit history. Oupatient records reviewed. Discharge Data Consultations 07/27/23 09:23 ED Decision to Admit Stat 07/27/23 09:26 Consult Neurology Routine Hospital Course (1) Thrombotic stroke involving right cerebellar artery: (1) CVA (cerebral vascular accident): (2) Hypertensive emergency: Plan This is a 73-year-old female who has a significant past medical history of allergic rhinitis who presents to ED secondary to acute onset episode of dizziness at approximately 530 this morning. Acute CVA Hypertensive emergency --MRI Two small acute infarcts within the right cerebellar hemisphere, measuring up to 1.4 x 0.4 cm. No mass effect. No hemorrhage. admit to PCU consult neurology allow for permissive hypertension, treat if > 220/120, close BP monitoring she is not on any oral antihypertensives at baseline obtain lipid panel, a1c, bmp, cbc, tsh in a.m. initiate asa 81mg daily and atorvastatin 40mg daily she received 325mg ASA in ED PT/OT/ST obtain echocardiogram eval for pfo - per cardiology pt does appear to have a small PFO; however given age, htn, hld would likely not close it repeat ecg due to artifact on initial HLD chart review in [facility] revealed total Chol 318, trig 120, HDL 92, LDL 202 high intensity statin ordered Vitamin D def noted in outpatient [facility], vit d 29 will start supplement DVT ppx: SCDs for now, consider chemical prophylaxis in a.m. if no further neurologic change (Preceding documentation as per admitting provider.) Patient seen by Neurology during confinement. Assessment and recommendations as follows: (1) Thrombotic stroke involving right cerebellar artery: Stroke etiology could be athero embolic vs cardioembolic Plan For secondary stroke prevention start Aspirin 325mg. Atorvastatin 80mg Treat blood pressure if above 190 with PRN labetalol 10mg Start amlodipine 5 mg in am Echo shows a EF 55-60%, borderline ventricular hypertrophy and a small PFO recommend duplex scan of LE s Will need a Ziopatch on discharge 07/27/2023, 8PM Notified by RN of patient intent to leave hospital AGAINST MEDICAL ADVICE. Undersigned currently attending to multiple ER admissions. Patient unwilling to wait for provider to go over concerns. Patient signed AMA paper as per RN. Total time preparing this discharge summary was less than 10 minutes. Text document was generated using [employer] voice recognition software. It may contain grammatical or spelling errors. Kindly contact undersigned for clarification of any documentation item in question.
[2023-07-28] MEDS ORDERED: ASPIRIN 81 MG ECTAB PO SCH (09:00)
[2023-07-28] MEDS ORDERED: CHOLECALCIFEROL 400 UNITS 10 MCG TAB PO SCH (09:00)
--- NOTE | 2023-07-29 06:04 | Electrocardiogram Report ---
Test Reason : Blood Pressure : / mmHG Vent. Rate : 082 BPM Atrial Rate : 082 BPM P-R Int : 144 ms QRS Dur : 084 ms QT Int : 400 ms P-R-T Axes : 027 065 057 degrees QTc Int : 468 ms Poor data quality, interpretation may be adversely affected Sinus rhythm Nonspecific ST abnormality Abnormal ECG When compared with ECG of 20-FEB-2020 06:26, No significant change Confirmed by Amadeo Dukes ([id number]) on 07/29/2023 6:04:18 AM Referred By: REFERRED SELF Confirmed By:Amadeo Dukes
== END 2023-07-27 20:35 | disposition left against medical advice (07) | DRG 65 ==
LOC: ED 06:49 → EDINP 09:26 → 2S 17:01
DX: E78.5 Hyperlipidemia, unspecified; I16.1 Hypertensive emergency; Z88.8 Allergy status to other drugs, medicaments and biological substances; Z88.2 Allergy status to sulfonamides; I10 Essential (primary) hypertension; R29.700 NIHSS score 0; E55.9 Vitamin D deficiency, unspecified; R20.2 Paresthesia of skin; G83.34 Monoplegia, unspecified affecting left nondominant side; I63.341 Cerebral infarction due to thrombosis of right cerebellar artery